=== PATIENT | female | born 1960 | race Caucasian/White ===

== ENCOUNTER 2017-04-08 19:57 | Inpatient (IN) | payer OTHER, MEDICARE ==
[~2017-04-08] VITALS: Ht 172.7 cm; Wt 89.1 kg
[2017-04-08] VITALS (7 sets, daily range): BP systolic 108–139; BP diastolic 77–94; PULSE 88–112; RESP 16–20; TEMP 98; O2SAT 92–94
[~2017-04-08 19:57] MED LIST: ALBU6.7H INH; ASPI81 PO; IBUP-232 PO; OXYC-360 PO
[2017-04-08] MEDS ORDERED: SODIUM CHLOR 0.9% 1000 ML INJ 1,000 ML IV SCH (20:30)
[2017-04-08] MEDS ORDERED: methylPREDNISolone SOD SUCC 125 MG/2 ML VIAL IVP ONE (20:30)
[2017-04-08] MEDS ORDERED: ONDANSETRON HCL 4 MG/2 ML VIAL IV PUSH ONE ×2 (20:30→21:30)
[2017-04-08] MEDS ORDERED: SODIUM CHLORIDE 0.9% FLUSH 10 ML FLUSH IVF PRN ×2 (20:30→23:00)
[2017-04-08] MEDS: RESP: ALBUTEROL 2.5 MG/IPRATROPIUM 0.5 MG NEB (SCH) INH ×2 (20:45→20:46)
--- NOTE | 2017-04-08 20:59 | PD ---
HPI Chief Complaint: Chest Pain Time Seen by Provider: 20:28 Travel History International Travel<30 days: No Contact w/Intl Traveler<30days: No Traveled to known affect area: No History of Present Illness HPI 56-year-old female presents to the emergency department by private transportation for complaint of shortness of breath 3-4 days as well as nausea vomiting abdominal pain times one day. Patient denies fever or chills. Patient reports she ran out of her nebulizer medication her nebulizer broke and she ran out of her rescue inhalers over the past 2-3 days and then today after eating a banana and a pot pie started developing nausea vomiting intermittent crampy abdominal pain and diarrhea with intermittent streaks of blood. No prior history of gastritis peptic ulcer disease colitis or inflammatory bowel disease. Patient states she has noticed over the past 2 weeks of intermittent episodes of blood in her stool after a loose stool. Patient continues to smoke cigarettes. Patient is followed by primary care provider Dr. Morgan but has not been able to get in touch with this physician for refill of medications. After several episodes of nonbilious [id number] emesis or hematemesis decided to come to the emergency room for evaluation. Patient also notes chest discomfort associated with shortness of breath consistent with her wheezing. PFSH Past Medical History Arthritis: Yes Asthma: Yes Anxiety: Yes COPD: Yes Diminished Hearing: No Genitourinary: Yes (BLADDER LEAKAGE) Thyroid Disease: Yes Tetanus Vaccination: Unknown Influenza Vaccination: Yes ?: Not Menopausal: Yes : 3 Para: 3 Social History Alcohol Use: No Tobacco Use: Yes (1 PPD) Substance Use: No Allergies-Medications (Allergen,Severity, Reaction): Coded Allergies: Penicillin (Verified Allergy, Severe, 04/08/17) Reported Meds & Prescriptions Reported Meds & Active Scripts Active Reported Ambien (Zolpidem Tartrate) 5 Mg Tab 5 Mg PO HS PRN Percocet (Oxycodone-Acetaminophen) 10-325 mg Tab 1 Tab PO Q6H PRN Alprazolam 0.25 Mg Tab 0.25 Mg PO BID PRN Diclofenac Sodium DR (Diclofenac Sodium) 75 Mg Tabdr 75 Mg PO BID Levothyroxine (Levothyroxine Sodium) 100 Mcg Tab 100 Mcg PO DAILY Albuterol Neb (Albuterol Sulfate) 2.5 Mg/0.5 Ml Neb 2.5 Mg NEB Q6HR NEB PRN Note: The Albuterol Sulfate Inhalation Solution is concentrated and must be diluted. Read complete instructions carefully before using. Proventil Hfa 6.7 GM Inh (Albuterol Sulfate) 90 Mcg/Act Aer 2 Puff INH Q4-6H PRN Review of Systems Except as stated in HPI: all other systems reviewed are Neg General / Constitutional: No: Fever, Chills HENT: No: Congestion Cardiovascular: Positive: Chest Pain or Discomfort Respiratory: Positive: Cough, Shortness of Breath, Wheezing, No: Hemoptysis, Pleuritic Pain Gastrointestinal: Positive: Nausea, Vomiting, Diarrhea, Abdominal Pain, Hematochezia (intermittent streaks of red blood), No: Hematemesis Genitourinary: No: Urgency, Frequency, Dysuria, Flank Pain Musculoskeletal: No: Myalgias, Arthralgias Skin: No Rash Neurologic: No: Weakness, Dizziness, Syncope Psychiatric: Positive: Anxiety Endocrine: No: Heat Intolerance Hematologic/Lymphatic: No: Easy Bruising Physical Exam Narrative GENERAL: Well-developed well-nourished female in mild to moderate respiratory distress SKIN: Warm and dry. HEAD: Normocephalic. EYES: No scleral icterus. No injection or drainage. NECK: Supple, trachea midline. No JVD or lymphadenopathy. CARDIOVASCULAR: Increased Regular rate and rhythm without murmurs, gallops, or rubs. RESPIRATORY: Breath sounds equal bilaterally diminished bilaterally with expiratory wheeze. No accessory muscle use. GASTROINTESTINAL: Abdomen soft, non-tender, no guarding, no rebound; nondistended. MUSCULOSKELETAL: No cyanosis, or edema. Radial and dorsalis pedis pulses 2+ to palpation. BACK: Nontender without obvious deformity. No CVA tenderness. Data Data Last Documented VS Vital Signs Date Time Temp Pulse Resp B/P Pulse Ox O2 Delivery O2 Flow Rate FiO2 04/08/17 22:15 88 16 139/79 93 Nasal Cannula 2 04/08/17 20:02 98.0 Orders Complete Blood Count With Diff (04/08/17 20:28) Comprehensive Metabolic Panel (04/08/17 20:28) B-Type Natriuretic Peptide (04/08/17 20:28) Act Partial Throm Time (Ptt) (04/08/17 20:28) Prothrombin Time / Inr (Pt) (04/08/17 20:28) Magnesium (Mg) (04/08/17 20:28) Ckmb (Isoenzyme) Profile (04/08/17 20:28) Troponin I (04/08/17 20:28) Urinalysis - C+S If Indicated (04/08/17 20:28) Blood Culture (04/08/17 20:28) Iv Access Insert/Monitor (04/08/17 20:28) Electrocardiogram (04/08/17 20:28) Ecg Monitoring (04/08/17 20:28) Oximetry (04/08/17 20:28) Oxygen Administration (04/08/17 20:28) Chest, Single Ap (04/08/17 20:28) Sodium Chloride 0.9% Flush (Ns Flush) (04/08/17 20:30) Methylprednisolone So Succ Inj (Solumedr (04/08/17 20:30) Albuterol-Ipratropium Neb (Duoneb Neb) (04/08/17 20:30) Sodium Chlor 0.9% 1000 Ml Inj (Ns 1000 M (04/08/17 20:30) Lipase (04/08/17 20:28) Ondansetron Inj (Zofran Inj) (04/08/17 20:30) Enteric Path (Stool) (04/08/17 20:28) Lactic Acid (04/08/17 20:28) Ondansetron Inj (Zofran Inj) (04/08/17 21:30) Ct Abd/Pel W Iv Contrast(Rout) (04/08/17 ) Iohexol 350 Inj (Omnipaque 350 Inj) (04/08/17 22:10) Urine Culture (04/08/17 21:55) Albuterol-Ipratropium Neb (Duoneb Neb) (04/08/17 22:45) Levofloxacin 750 Mg Premix Inj (Levaquin (04/08/17 22:45) Sodium Chlor 0.9% 1000 Ml Inj (Ns 1000 M (04/08/17 22:45) Admit To Inpatient (04/08/17 ) Vital Signs (Adult) Q4H (04/08/17 22:48) Activity Oob With Assistance (04/08/17 22:48) Hauling Contractor / Telemetry .CONTINUOUS (04/08/17 22:48) Diet Heart Healthy (04/09/17 Breakfast) Sodium Chlor 0.9% 1000 Ml Inj (Ns 1000 M (04/08/17 22:48) Sodium Chloride 0.9% Flush (Ns Flush) (04/08/17 23:00) Sodium Chloride 0.9% Flush (Ns Flush) (04/09/17 09:00) Ondansetron Inj (Zofran Inj) (04/08/17 23:00) Comprehensive Metabolic Panel (04/09/17 06:00) Complete Blood Count With Diff (04/09/17 06:00) Case Management Consult (04/08/17 22:48) Naloxone Inj (Narcan Inj) (04/08/17 23:00) Inpatient Certification (04/08/17 ) Levofloxacin 750 Mg Premix Inj (Levaquin (04/09/17 22:00) Albuterol-Ipratropium Neb (Duoneb Neb) (04/09/17 04:00) Albuterol-Ipratropium Neb (Duoneb Neb) (04/08/17 23:00) Admit Order (Ed Use Only) (04/08/17 ) ^ Saline Lock (04/08/17 22:50) Resp Oxygen Sandip C Titrat 1-4 L (04/08/17 ) Notify Dr: Other (04/08/17 22:50) Sodium Chloride 0.9% Flush (Ns Flush) (04/09/17 09:00) Sodium Chloride 0.9% Flush (Ns Flush) (04/08/17 23:00) Labs Laboratory Tests Test 04/08/17 04/08/17 21:10 21:55 White Blood Count 15.1 TH/MM3 Red Blood Count 5.73 MIL/MM3 Hemoglobin 15.9 GM/DL Hematocrit 49.0 % Mean Corpuscular Volume 85.5 FL Mean Corpuscular Hemoglobin 27.7 PG Mean Corpuscular Hemoglobin 32.4 % Concent Red Cell Distribution Width 13.8 % Platelet Count 278 TH/MM3 Mean Platelet Volume 9.2 FL Neutrophils (%) (Auto) 73.2 % Lymphocytes (%) (Auto) 17.6 % Monocytes (%) (Auto) 3.9 % Eosinophils (%) (Auto) 0.7 % Basophils (%) (Auto) 4.6 % Neutrophils # (Auto) 11.0 TH/MM3 Lymphocytes # (Auto) 2.7 TH/MM3 Monocytes # (Auto) 0.6 TH/MM3 Eosinophils # (Auto) 0.1 TH/MM3 Basophils # (Auto) 0.7 TH/MM3 CBC Comment DIFF FINAL Differential Comment Prothrombin Time 10.7 SEC Prothromb Time International 1.0 RATIO Ratio Activated Partial 28.1 SEC Thromboplast Time Sodium Level 142 MEQ/L Potassium Level 3.8 MEQ/L Chloride Level 107 MEQ/L Carbon Dioxide Level 28.4 MEQ/L Anion Gap 7 MEQ/L Blood Urea Nitrogen 15 MG/DL Creatinine 0.75 MG/DL Estimat Glomerular Filtration 80 ML/MIN Rate Random Glucose 107 MG/DL Lactic Acid Level 1.3 mmol/L Calcium Level 9.4 MG/DL Magnesium Level 2.2 MG/DL Total Bilirubin 0.4 MG/DL Aspartate Amino Transf 7 U/L (AST/SGOT) Alanine Aminotransferase 16 U/L (ALT/SGPT) Alkaline Phosphatase 122 U/L Total Creatine Kinase 45 U/L Troponin I LESS THAN 0.02 NG/ML B-Type Natriuretic Peptide 8 PG/ML Total Protein 7.7 GM/DL Albumin 4.2 GM/DL Lipase 231 U/L Urine Color YELLOW Urine Turbidity CLEAR Urine pH 6.0 Urine Specific [place] 1.025 Urine Protein NEG mg/dL Urine Glucose (UA) NEG mg/dL Urine Ketones TRACE mg/dL Urine Occult Blood NEG Urine Nitrite NEG Urine Bilirubin NEG Urine Leukocyte Esterase SMALL Urine RBC INNUM /hpf Urine WBC 9-14 /hpf Urine Squamous Epithelial > 8 /hpf Cells Urine Amorphous Sediment FEW Urine Mucus MANY /lpf Microscopic Urinalysis Comment CULTURE INDICATED MDM Medical Decision Making Medical Screen Exam Complete: Yes Emergency Medical Condition: Yes Medical Record Reviewed: Yes Interpretation(s) EKG normal sinus rhythm rate [address] elevation or injury pattern change or ectopy noted artifact is present at baseline Differential Diagnosis Exacerbation COPD, pneumonia, CHF, ACS, [place], pleurisy, costochondritis, viral syndrome, gastroenteritis, food borne illness, colitis Narrative Course Patient placed on cardiac cath rn IV access obtained specimens collected and sent for resulting EKG performed sinus rhythm rate of [address] elevation or injury pattern change or ectopy noted; patient administered DuoNeb updrafts along with Solu-Medrol; patient also administered Zofran 4 mg IV for complaint of nausea. CBC is automated differential white count 15,000; chest x-ray reveals no lobar infiltrate Lactic acid 1.3, not elevated CT abdomen and pelvis reveals bilateral lower lobe infiltrates and possible SMA syndrome otherwise no acute abnormality identified; patient feels clinically improved although continues to have rhonchi and expiratory wheezing Patient's case discussed with on-call medicine for admission for exacerbation COPD pneumonia gastroenteritis and meets sepsis criteria/sirs for admission. Patient administered Levaquin 750 mg times one dose in the emergency department. Patient given additional DuoNeb updraft and informed of plan for admission Critical Care Narrative Aggregate critical care time was 35 minutes. Time to perform other separately billable procedures was not included in the critical care time. My time did not include minutes spent treating any other patients simultaneously or on activities that did not directly contribute to the patient's treatment. The services I provided to this patient were to treat and/or prevent clinically significant deterioration that could result in: Respiratory failure, respiratory arrest, septic shock, I provided critical care services requiring my management, as noted below: Chart data review, documentation time, medication orders and management, vital sign assessments/reviewing monitor data, ordering and reviewing lab tests, ordering and interpreting/reviewing x-rays and diagnostic studies, care of the patient and discussion of the patient with the admitting physicians. Sepsis Criteria SIRS Criteria (2 or more): Heart rate over 90, WBC > 44701, < 4000 or > 10% bands Sepsis Criteria (SIRS+source): Infect source susp/known (lung/ gi) Physician Communication Physician Communication discused with Dr Judd --admit for copd pneumonia sepsis/sirs Diagnosis Primary Impression: COPD with acute exacerbation Additional Impressions: Pneumonia Gastroenteritis Sepsis Admitting Information Admitting Physician Requests: Admit Paulette Medrano MD Apr 08, 2017 20:59
--- NOTE | 2017-04-08 21:02 | RADRPT ---
EXAM DATE/TIME: 04/08/2017 20:33 [facility] COMPARISON: No previous studies available for comparison. INDICATIONS : Short of breath. MEDICAL HISTORY : Chronic obstructive pulmonary disease. SURGICAL HISTORY : None. ENCOUNTER: Initial ACUITY: 1 day PAIN SCORE: 0/10 LOCATION: Bilateral chest FINDINGS: A single view of the chest demonstrates the lungs to be symmetrically aerated without evidence of mas s, infiltrate or effusion. The cardiomediastinal contours are unremarkable. Degenerative changes in right glenohumeral and a.c. joints. The left shoulder is not included in the [id number]. Multip le hemoclips in the left supraclavicular region.. CONCLUSION: The lungs are clear. Alex Motnalvo MD on April 08, 2017 at 21:00 Board Certified Radiologist. This report was verified electronically.
[2017-04-08 21:24] LABS: BASOPHIL # 0.7 TH/MM3 (0-0.2); BASOPHIL % 4.6 % (0.0-2.0); EOSINOPHIL # 0.1 TH/MM3 (0-0.4); EOSINOPHIL % 0.7 % (0.0-4.0); HEMO FLAGS DIFF FINAL; LYMPH % 17.6 % (9.0-44.0); LYMPHOCYTE # 2.7 TH/MM3 (1.0-4.8); MEAN CELL VOLUME 85.5 FL (80.0-100.0); MEAN CORPUSCULAR HEMOGLOBIN 27.7 PG (27.0-34.0); MEAN CORPUSCULAR HGB CONC 32.4 % (32.0-36.0); MONO % 3.9 % (0.0-8.0); NEUT % 73.2 % (16.0-70.0); PLATELET COUNT 278 TH/MM3 (150-450); RED BLOOD COUNT 5.73 MIL/MM3 (4.00-5.30); RED CELL DISTRIBUTION WIDTH 13.8 % (11.6-17.2); WHITE BLOOD COUNT 15.1 TH/MM3 (4.0-11.0)
[2017-04-08 21:35] LABS: CHLORIDE 107 MEQ/L (98-107); POTASSIUM 3.8 MEQ/L (3.5-5.1); SODIUM (NA) 142 MEQ/L (136-145)
[2017-04-08 21:39] LABS: ANION GAP 7 MEQ/L (5-15); BICARBONATE 28.4 MEQ/L (21.0-32.0); BLOOD UREA NITROGEN 15 MG/DL (7-18); MAGNESIUM 2.2 MG/DL (1.5-2.5)
[2017-04-08 21:40] LABS: APTT (PATIENT) 28.1 SEC (24.3-30.1); PROTHROMBIN TIME - PATIENT 10.7 SEC (9.8-11.6)
[2017-04-08 21:42] LABS: ALT (GPT) 16 U/L (10-53); AST (GOT) 7 U/L (15-37); GLOMERULAR FILTRATION RATE 80 ML/MIN (>89)
[2017-04-08 21:43] LABS: TOTAL BILIRUBIN ADULT 0.4 MG/DL (0.2-1.0)
[2017-04-08 21:44] LABS: ALKALINE PHOSPHATASE 122 U/L (45-117)
[2017-04-08 21:50] LABS: CREATINE KINASE 45 U/L (26-192)
[2017-04-08 22:08] LABS: BLOOD, URINE NEG (NEG); GLUCOSE,URINE NEG (NEG); KETONE, URINE TRACE mg/dL (NEG); NITRITE,URINE NEG (NEG)
[2017-04-08] MEDS ORDERED: IOHEXOL 350 MG/ML 10 ML VIAL (for RAD DIAG) IV ONE (22:10)
[2017-04-08 22:18] LABS: COMMENT (UR) CULTURE INDICATED; CULTURE IF INDICATED CULTURE INDICATED; MUCUS URINE MANY /lpf (OCC); RBC, URINE INNUM /hpf (0-3); SQUAMOUS EPITHELIAL CELL URINE > 8 /hpf (0-5); URINE COLOR YELLOW (YELLW/STRAW)
--- NOTE | 2017-04-08 22:38 | RADRPT ---
EXAM DATE/TIME: 04/08/2017 21:56 [facility] COMPARISON: No previous studies available for comparison. INDICATIONS : Nausea and vomiting. IV CONTRAST: 100 cc Omnipaque 350 (iohexol) IV ORAL CONTRAST: No oral contrast ingested. RADIATION DOSE: 18.08 CTDIvol (mGy) MEDICAL HISTORY : Bladder leakage. SURGICAL HISTORY : None. ENCOUNTER: Initial ACUITY: 1 day PAIN SCALE: 0/10 LOCATION: abdomen TECHNIQUE: Volumetric scanning of the abdomen and pelvis was performed. Using automated exposure control and ad justment of the mA and/or kV according to patient size, radiation dose was kept as low as reasonably achievable to obtain optimal diagnostic quality images. DICOM format image data is available electro nically for review and comparison. FINDINGS: LOWER LUNGS: Patchy bibasilar infiltrates lateral costophrenic angle on the right and anteriorly on the left. Sma ll hiatus hernia. LIVER: Homogeneous density without lesion. There is no dilation of the biliary tree. The gallbladder is mi ldly contracted. No calcified gallstones. SPLEEN: Normal size without lesion. PANCREAS: Within normal limits. KIDNEYS: Normal in size and shape. There is no mass, stone or hydronephrosis. ADRENAL GLANDS: Within normal limits. VASCULAR: There is no aortic aneurysm. BOWEL/MESENTERY: There is a change in the luminal diameter of the 4th portion of the duodenum as it crosses between th e aorta and the superior mesenteric artery. No dilated loops of small or large bowel. No evidence o f free fluid. No significant diverticula the appendix is identified in the right lower quadrant has a normal size. ABDOMINAL WALL: Within normal limits. RETROPERITONEUM: There is no lymphadenopathy. BLADDER: No wall thickening or mass. REPRODUCTIVE: Within normal limits. INGUINAL: There is no lymphadenopathy or hernia. MUSCULOSKELETAL: Within normal limits for patient age. CONCLUSION: 1. Bibasilar lung consolidative infiltrates without pleural effusion. 2. Change in the luminal diameter of the 4th portion of the duodenum raises the possibility of SMA sy ndrome. 3. Contracted gallbladder without calcified stones. Alex Montalvo MD on April 08, 2017 at 22:32 Board Certified Radiologist. This report was verified electronically.
[2017-04-08] MEDS ORDERED: ALBU6.7H INH (22:40)
[2017-04-08] MEDS ORDERED: ALBU.5I NEB (22:40)
[2017-04-08] MEDS ORDERED: ALPR0.25 PO (22:43)
[2017-04-08] MEDS ORDERED: PERC10TA27 PO (22:43)
[2017-04-08] MEDS ORDERED: LEVO100T5 PO (22:43)
[2017-04-08] MEDS ORDERED: AMBI5TAB PO (22:43)
[2017-04-08] MEDS ORDERED: DICL75TA PO (22:43)
[2017-04-08] MEDS ORDERED: RESP: ALBUTEROL 2.5 MG/IPRATROPIUM 0.5 MG NEB (SCH) NEB ONE (22:45)
[2017-04-08] MEDS ORDERED: LEVOFLOXACIN 750 MG PREMIX INJ 150 ML IV ONE (22:45)
[2017-04-08] MEDS ORDERED: SODIUM CHLOR 0.9% 1000 ML INJ 1,000 ML IV ONE (22:45)
[2017-04-08] MEDS ORDERED: NALOXONE HCL 0.4 MG/ML AMP IV PRN (23:00)
[2017-04-08] MEDS ORDERED: SODIUM CHLORIDE 0.9% FLUSH 10 ML FLUSH IV FLUSH PRN (23:00)
[2017-04-08] MEDS ORDERED: RESP: ALBUTEROL 2.5 MG/IPRATROPIUM 0.5 MG NEB (PRN) NEB (23:00)
[2017-04-08] MEDS: SODIUM CHLOR 0.9% 1000 ML INJ 1,000 ML IV SCH (23:13)
[2017-04-08] MEDS: ONDANSETRON HCL 4 MG/2 ML VIAL IVP PRN (23:13)
[2017-04-09] VITALS (10 sets, daily range): BP systolic 114–156; BP diastolic 73–93; PULSE 74–120; RESP 20; TEMP 96.3–98.1; O2SAT 90–94
[2017-04-09] MEDS ORDERED: NICOTINE 21 MG/24 HR PATCH T-DERMAL ONE
[2017-04-09] MEDS: ZOLPIDEM TARTRATE 5 MG TAB PO PRN ×2 (00:41→21:08)
[2017-04-09] MEDS ORDERED: ALPR0.5T3 PO (01:07)
[2017-04-09] MEDS ORDERED: oxyCODONE/ACETAMINOPHEN 7.5 MG/325 MG TAB PO ONE (01:45)
[2017-04-09] MEDS: RESP: ALBUTEROL 2.5 MG/IPRATROPIUM 0.5 MG NEB (SCH) NEB ×4 (03:06→21:20)
[2017-04-09] MEDS: ONDANSETRON HCL 4 MG/2 ML VIAL IVP PRN ×3 (03:44→21:04)
[2017-04-09] MEDS: SODIUM CHLOR 0.9% 1000 ML INJ 1,000 ML IV SCH ×2 (03:47→18:48)
[2017-04-09 06:00] LABS: AUTOMATED NEUTROPHIL # 12.2 TH/MM3 (1.8-7.7); BASOPHIL # 0.1 TH/MM3 (0-0.2); BASOPHIL % 0.7 % (0.0-2.0); HEMATOCRIT 42.2 % (35.0-46.0); LYMPH % 4.7 % (9.0-44.0); LYMPHOCYTE # 0.6 TH/MM3 (1.0-4.8); MEAN CELL VOLUME 85.1 FL (80.0-100.0); MEAN CORPUSCULAR HEMOGLOBIN 28.3 PG (27.0-34.0); MEAN CORPUSCULAR HGB CONC 33.2 % (32.0-36.0); MONO % 0.1 % (0.0-8.0); NEUT % 94.5 % (16.0-70.0); PLATELET COUNT 227 TH/MM3 (150-450); RED BLOOD COUNT 4.95 MIL/MM3 (4.00-5.30); RED CELL DISTRIBUTION WIDTH 13.9 % (11.6-17.2); WHITE BLOOD COUNT 12.9 TH/MM3 (4.0-11.0)
[2017-04-09 06:07] LABS: CHLORIDE 107 MEQ/L (98-107); SODIUM (NA) 141 MEQ/L (136-145)
[2017-04-09 06:08] LABS: HEMO FLAGS DIFF FINAL
[2017-04-09 06:12] LABS: ANION GAP 10 MEQ/L (5-15); BICARBONATE 24.4 MEQ/L (21.0-32.0); BLOOD UREA NITROGEN 19 MG/DL (7-18)
[2017-04-09 06:15] LABS: ALT (GPT) 17 U/L (10-53); AST (GOT) 7 U/L (15-37); GLOMERULAR FILTRATION RATE 52 ML/MIN (>89)
[2017-04-09 06:16] LABS: TOTAL BILIRUBIN ADULT 0.6 MG/DL (0.2-1.0)
[2017-04-09 06:18] LABS: ALKALINE PHOSPHATASE 114 U/L (45-117)
[2017-04-09] MEDS: SODIUM CHLORIDE 0.9% FLUSH 10 ML FLUSH IV FLUSH SCH ×2 (09:00→21:00)
[2017-04-09] MEDS ORDERED: SODIUM CHLORIDE 0.9% FLUSH 10 ML FLUSH IV FLUSH SCH (09:00)
[2017-04-09] MEDS ORDERED: oxyCODONE/ACETAMINOPHEN 10 MG/325 MG TAB PO PRN (10:00)
--- NOTE | 2017-04-09 14:41 | EKG ---
Date Performed: 04/08/2017 Time Performed: 20:45:21 PTAGE: 56 years EKG: Sinus rhythm NORMAL ECG NO PREVIOUS TRACING DOCTOR: Uzma Hooks Interpretating Date/Time 04/09/2017 14:39:37
[2017-04-09] MEDS ORDERED: RESP: ALBUTEROL 2.5 MG/3 ML NEB (PRN) INH (15:00)
--- NOTE | 2017-04-09 15:00 | HHI.HP ---
HPI Service [facility] Primary Care Physician Radha Morgan M.D. Admission Diagnosis exacerbation copd; pneumonia; sepsis Diagnoses: Travel History International Travel<30 Days: No Contact w/Intl Traveler <30 Da: No Traveled to Known Affected Are: No Sepsis Criteria SIRS Criteria (2 or more): Heart rate over 90, WBC > 12688, < 4000 or > 10% bands Sepsis Criteria (SIRS+source): Infect source susp/known History of Present Illness Patient is a 56-year-old female with past medical history of COPD/asthma, chronic low back pain, severe arthritis of the knees, hypothyroidism presented to the emergency room for worsening shortness of breath. She states that there is black mold in her house and she is in the process of trying to move. She has been feeling sick for a while. Last night she was experiencing some chest pain 8 out of 10 associated with coughing and her shortness of breath. She has been feeling weak and dehydrated. She admits to nausea vomiting and diarrhea on and off for the past week. She had mild diarrhea yesterday but none today. She states that 2 weeks ago she did have streaks of blood in her stools. She admits to having hemorrhoids in the past. She wonders if the red color noted in his stool 2 weeks ago was due to her drinking "big-red "soda. She denies any bleeding at this time. She continues to have some shortness of breath but has improved after getting some steroids in the emergency room. She is still wheezing. Her nebulizer broke about a month ago and she hasn't had a chance replace it. Currently she denies any chest pains. She admits to some chills but hasn't taken her temperature at home and she doesn't know if she had any fevers. She also has been coughing up some white phlegm. Daughter also has been feeling sick secondary to the mold. Review of Systems Except as stated in HPI: all other systems reviewed are Neg Past Family Social History Past Medical History COPD/asthma, chronic low back pain, severe arthritis of the knees, hypothyroidism Past Surgical History Right and left knee arthroscopy. Neck mass removal. Reported Medications Reported Meds & Active Scripts Active Reported Alprazolam 0.5 Mg Tab 0.5 Mg PO BID PRN Ambien (Zolpidem Tartrate) 5 Mg Tab 5 Mg PO HS PRN Percocet (Oxycodone-Acetaminophen) 10-325 mg Tab 1 Tab PO Q6H PRN Diclofenac Sodium DR (Diclofenac Sodium) 75 Mg Tabdr 75 Mg PO BID Levothyroxine (Levothyroxine Sodium) 100 Mcg Tab 100 Mcg PO DAILY Albuterol Neb (Albuterol Sulfate) 2.5 Mg/0.5 Ml Neb 2.5 Mg NEB Q6HR NEB PRN Note: The Albuterol Sulfate Inhalation Solution is concentrated and must be diluted. Read complete instructions carefully before using. Proventil Hfa 6.7 GM Inh (Albuterol Sulfate) 90 Mcg/Act Aer 2 Puff INH Q4-6H PRN Allergies: Coded Allergies: Penicillin (Verified Allergy, Severe, 04/08/17) Family History Other had brain cancer. Father committed suicide Social History Smokes a pack a day for the past 12 years. Denies alcohol or illegal drug use Physical Exam Vital Signs Vital Signs Date Time Temp Pulse Resp B/P Pulse Ox O2 Delivery O2 Flow Rate FiO2 04/09/17 12:00 97.7 101 20 156/84 94 04/09/17 11:20 18 04/09/17 10:02 91 21 04/09/17 08:00 96.8 90 20 146/80 92 04/09/17 06:55 88 04/09/17 04:00 96.3 106 20 143/77 91 04/09/17 00:45 96.6 95 20 114/73 93 04/09/17 00:12 96.6 95 20 114/73 93 04/08/17 23:31 88 18 108/77 93 Nasal Cannula 2 04/08/17 22:52 94 Nasal Cannula 2.00 04/08/17 22:15 88 16 139/79 93 Nasal Cannula 2 04/08/17 20:40 94 Room Air 04/08/17 20:40 18 94 Room Air 04/08/17 20:30 98.0 103 20 131/94 93 Room Air 04/08/17 20:25 109 93 Room Air 04/08/17 20:15 103 20 131/94 94 Room Air 04/08/17 20:02 98.0 112 20 126/93 92 Physical Exam GENERAL: This is a well-nourished, well-developed patient, laying in bed, appears comfortable. SKIN: No rashes, ecchymoses or lesions. Cool and dry. HEAD: Atraumatic. Normocephalic. No temporal or scalp tenderness. EYES: Pupils equal round and reactive. Extraocular motions intact. No scleral icterus. No injection or drainage. ENT: Nose without drainage. Throat without erythema, tonsillar hypertrophy or exudate. Uvula midline. Airway patent. NECK: Trachea midline. No JVD or lymphadenopathy. Supple, nontender, no meningeal signs. CARDIOVASCULAR: Regular rate and rhythm without murmurs RESPIRATORY: Breath sounds equal bilaterally. Diffuse wheezing at the bases. No crackles auscultated GASTROINTESTINAL: Abdomen soft, some epigastric tenderness to deep palpation, nondistended. No palpable masses. No guarding. MUSCULOSKELETAL: Extremities without edema. No calf tenderness. Negative Homans sign bilaterally. NEUROLOGICAL: Awake and alert. Cranial nerves II through XII intact. Motor and sensory grossly within normal limits. Normal speech. Laboratory Laboratory Tests Test 04/08/17 04/08/17 04/09/17 21:10 21:55 05:45 Prothrombin Time 10.7 Prothromb Time International 1.0 Ratio Activated Partial 28.1 Thromboplast Time Sodium Level 142 141 Potassium Level 3.8 4.0 Chloride Level 107 107 Carbon Dioxide Level 28.4 24.4 Anion Gap 7 10 Blood Urea Nitrogen 15 19 Creatinine 0.75 1.10 Estimat Glomerular Filtration 80 52 Rate Random Glucose 107 195 Lactic Acid Level 1.3 Calcium Level 9.4 9.3 Magnesium Level 2.2 Total Bilirubin 0.4 0.6 Aspartate Amino Transf 7 7 (AST/SGOT) Alanine Aminotransferase 16 17 (ALT/SGPT) Alkaline Phosphatase 122 114 Total Creatine Kinase 45 Troponin I LESS THAN 0.02 B-Type Natriuretic Peptide 8 Total Protein 7.7 7.0 Albumin 4.2 3.8 Lipase 231 White Blood Count 15.1 12.9 Red Blood Count 5.73 4.95 Hemoglobin 15.9 14.0 Hematocrit 49.0 42.2 Mean Corpuscular Volume 85.5 85.1 Mean Corpuscular Hemoglobin 27.7 28.3 Mean Corpuscular Hemoglobin 32.4 33.2 Concent Red Cell Distribution Width 13.8 13.9 Platelet Count 278 227 Mean Platelet Volume 9.2 9.3 Neutrophils (%) (Auto) 73.2 94.5 Lymphocytes (%) (Auto) 17.6 4.7 Monocytes (%) (Auto) 3.9 0.1 Eosinophils (%) (Auto) 0.7 0.0 Basophils (%) (Auto) 4.6 0.7 Neutrophils # (Auto) 11.0 12.2 Lymphocytes # (Auto) 2.7 0.6 Monocytes # (Auto) 0.6 0.0 Eosinophils # (Auto) 0.1 0.0 Basophils # (Auto) 0.7 0.1 CBC Comment DIFF FINAL DIFF FINAL Differential Comment Urine Color YELLOW Urine Turbidity CLEAR Urine pH 6.0 Urine Specific Blain 1.025 Urine Protein NEG Urine Glucose (UA) NEG Urine Ketones TRACE Urine Occult Blood NEG Urine Nitrite NEG Urine Bilirubin NEG Urine Leukocyte Esterase SMALL Urine RBC INNUM Urine WBC 9-14 Urine Squamous Epithelial > 8 Cells Urine Amorphous Sediment FEW Urine Mucus MANY Microscopic Urinalysis Comment CULTURE INDICATED Date/Time Procedure Status Source Growth 04/08/17 22:00 Aerobic Blood Culture - Preliminary Resulted Blood Peripheral NO GROWTH IN 1 DAY 04/08/17 22:00 Anaerobic Blood Culture - Final Resulted Blood Peripheral QNS - SEE AEROBE REPORT 04/08/17 21:55 Urine Culture - Preliminary Resulted Urine Clean Catch Gram Negative Juwan Result Diagram: 04/09/17 0545 04/09/17 0545 Imaging Last Impressions Chest X-Ray 04/08/172027 Signed Impressions: Service Date/Time: Saturday, April 08, 2017 20:33 - CONCLUSION: The lungs are clear. Alex Montalvo MD Abdomen/Pelvis CT 04/08/17 0000 Signed Impressions: Service Date/Time: Saturday, April 08, 2017 21:56 - CONCLUSION: 1. Bibasilar lung consolidative infiltrates without pleural effusion. 2. Change in the luminal diameter of the 4th portion of the duodenum raises the possibility of SMA syndrome. 3. Contracted gallbladder without calcified stones. Alex Montalvo MD Assessment and Plan Assessment and Plan Severe COPD exacerbation: Patient apparently has a history of COPD and is on disability for 10 years. 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 She received a dose of IV Solu-Medrol in the emergency room. Will continue IV Solu- Medrol 40 every 6 hours for now. Transition to po once improved. Currently on nasal cannula requiring 2 L oxygen. We will give her scheduled DuoNeb treatments and as needed. Encourage use of incentive spirometer every hour while awake. We will treat with IV Levaquin as CT abdomen and pelvis was concerning for Bibasilar lung consolidative infiltrates without pleural effusion. wean oxygen, keep O2 sats between 89-92%. Encourage ambulation. Initial troponin negative. Patient is chest pain is associated with coughing in shortness of breath. No longer having chest pains. EKG on admission showed normal sinus rhythm with no ST elevation or depressions. Mild PATI: Gentle hydration IV. Repeat in the morning chronic low back pain: Pain medication restarted, she states she takes it 4 times a day during the day. severe arthritis of the knees: Home dose Percocet. hypothyroidism: home medication resumed DVT prophylaxis: Lovenox Code Status full Discussed Condition With patient Loretta Bennett MD Apr 09, 2017 15:00
[2017-04-09] MEDS: methylPREDNISolone SOD SUCC 125 MG/2 ML VIAL IVP SCH ×2 (15:25→21:05)
[2017-04-09] MEDS ORDERED: ENOXAPARIN SODIUM 40 MG/0.4 ML SYRINGE SQ SCH (16:00)
[2017-04-09] MEDS ORDERED: RESP: ALBUTEROL 2.5 MG/IPRATROPIUM 0.5 MG NEB (SCH) INH (16:00)
[2017-04-09] MEDS: NICOTINE 21 MG/24 HR PATCH T-DERMAL SCH (16:10)
[2017-04-09] MEDS ORDERED: REMOVE OLD PATCH T-DERMAL SCH (21:00)
[2017-04-09] MEDS ORDERED: ZOLPIDEM TARTRATE 5 MG TAB PO PRN (21:00)
[2017-04-09] MEDS: oxyCODONE/ACETAMINOPHEN 10 MG/325 MG TAB PO PRN (21:08)
[2017-04-09] MEDS: ALPRAZolam 0.5 MG TAB PO PRN (21:08)
[2017-04-09] MEDS ORDERED: LEVOFLOXACIN 750 MG PREMIX INJ 150 ML IV SCH (22:00)
[2017-04-10] VITALS (7 sets, daily range): BP systolic 118–147; BP diastolic 63–87; PULSE 81–98; RESP 16–20; TEMP 95.8–97.3; O2SAT 89–94
[2017-04-10] MEDS: methylPREDNISolone SOD SUCC 125 MG/2 ML VIAL IVP SCH ×2 (02:25→08:51)
[2017-04-10] MEDS: RESP: ALBUTEROL 2.5 MG/IPRATROPIUM 0.5 MG NEB (SCH) NEB ×2 (03:18→10:16)
[2017-04-10] MEDS ORDERED: LEVOTHYROXINE SODIUM 100 MCG TAB PO SCH (06:00)
[2017-04-10] MEDS: SODIUM CHLOR 0.9% 1000 ML INJ 1,000 ML IV SCH (06:03)
[2017-04-10] MEDS: ALPRAZolam 0.5 MG TAB PO PRN (06:11)
[2017-04-10 06:55] LABS: AUTOMATED NEUTROPHIL # 15.1 TH/MM3 (1.8-7.7); BASOPHIL # 0.1 TH/MM3 (0-0.2); BASOPHIL % 0.7 % (0.0-2.0); EOSINOPHIL % 0.1 % (0.0-4.0); HEMATOCRIT 42.3 % (35.0-46.0); LYMPHOCYTE # 0.8 TH/MM3 (1.0-4.8); MEAN CELL VOLUME 86.6 FL (80.0-100.0); MEAN CORPUSCULAR HEMOGLOBIN 28.3 PG (27.0-34.0); MEAN CORPUSCULAR HGB CONC 32.7 % (32.0-36.0); MONO % 0.4 % (0.0-8.0); NEUT % 93.8 % (16.0-70.0); PLATELET COUNT 221 TH/MM3 (150-450); RED BLOOD COUNT 4.88 MIL/MM3 (4.00-5.30); RED CELL DISTRIBUTION WIDTH 14.8 % (11.6-17.2); WHITE BLOOD COUNT 16.1 TH/MM3 (4.0-11.0)
[2017-04-10 07:01] LABS: POTASSIUM 4.4 MEQ/L (3.5-5.1)
[2017-04-10 07:05] LABS: HEMO FLAGS DIFF FINAL
[2017-04-10 07:10] LABS: BICARBONATE 24.5 MEQ/L (21.0-32.0)
[2017-04-10] MEDS: oxyCODONE/ACETAMINOPHEN 10 MG/325 MG TAB PO PRN ×2 (07:31→12:08)
[2017-04-10] MEDS: NICOTINE 21 MG/24 HR PATCH T-DERMAL SCH (08:51)
[2017-04-10] MEDS: SODIUM CHLORIDE 0.9% FLUSH 10 ML FLUSH IV FLUSH SCH (08:51)
--- NOTE | 2017-04-10 10:38 | HHI.PR ---
Subjective Remarks Written by Valentine Todd, acting as scribe for Dr. Bennett on 04/10/17 at 10:27. Follow-up visit COPD exacerbation, sepsis, ESBL in the urine. Patient seen and examined today. Reports she is doing a lot better. Shortness of breath dyspnea has improved compared to when she first came in. States she is concerned regarding going home because of mold issues in her home that even her daughter is actually being affected, but she is happy to find out that she is able to go home. Discussed with patient results of her UA. Denies abdominal pain, abdominal cramping, dysuria, hematuria. Denies chest pain, palpitations, headaches, dizziness. Denies fever, chills, nausea, vomiting, diarrhea. Objective Vitals Vital Signs Date Time Temp Pulse Resp B/P Pulse Ox O2 Delivery O2 Flow Rate FiO2 04/10/17 10:18 92 21 04/10/17 08:31 18 04/10/17 08:00 95.8 81 20 146/87 91 04/10/17 06:50 86 04/10/17 04:09 97.1 98 16 118/63 92 04/10/17 00:05 97.0 88 20 141/77 89 04/09/17 21:20 90 21 04/09/17 20:36 98.1 120 20 150/93 91 04/09/17 16:00 97.8 74 20 143/87 94 04/09/17 12:00 97.7 101 20 156/84 94 04/09/17 11:20 18 I/O 04/09/17 04/09/17 04/09/17 04/10/17 04/10/17 04/10/17 07:00 15:00 23:00 07:00 15:00 23:00 Intake Total 1110 ml 1610 ml 3641 ml Balance 1110 ml 1610 ml 3641 ml Intake Oral 960 ml 1610 ml 1920 ml IV Total 150 ml 1721 ml # Voids 1 3 4 # Bowel Movements 0 1 Result Diagram: 04/10/1717 04/10/17616 Imaging Last Impressions Chest X-Ray 04/08/172027 Signed Impressions: Service Date/Time: Saturday, April 08, 2017 20:33 - CONCLUSION: The lungs are clear. Alex Montalvo MD Abdomen/Pelvis CT 04/08/17 0000 Signed Impressions: Service Date/Time: Saturday, April 08, 2017 21:56 - CONCLUSION: 1. Bibasilar lung consolidative infiltrates without pleural effusion. 2. Change in the luminal diameter of the 4th portion of the duodenum raises the possibility of SMA syndrome. 3. Contracted gallbladder without calcified stones. Alex Montalvo MD Objective Remarks GENERAL: This is a well-nourished, well-developed patient, in no apparent distress. SKIN: Warm and dry. HEENT: Normocephalic. Pupils equal round and reactive. Nose without bleeding. Airway patent. NECK: Trachea midline. No JVD. Supple. CARDIOVASCULAR: Regular rate and rhythm without murmurs, gallops, or rubs. RESPIRATORY: Moderate air entry. Mild expiratory wheezes. GASTROINTESTINAL: Abdomen soft, non-tender, nondistended. Bowel Sounds normoactive x4. MUSCULOSKELETAL: Extremities without clubbing, cyanosis, or edema. NEUROLOGICAL: Awake and alert. Oriented to time, place, person. No focal neuro deficit. Moves all extremities. Normal speech. A/P Problem List: (1) COPD with acute exacerbation ICD Code: J44.1 Status: Acute (2) Sepsis ICD Code: A41.9 Status: Acute (3) UTI due to extended-spectrum beta lactamase (ESBL) producing Escherichia coli ICD Code: N39.0 Status: Acute Assessment and Plan Patient is a 56-year-old female with past medical history of COPD/asthma, chronic low back pain, severe arthritis of the knees, hypothyroidism presented to the emergency room for worsening shortness of breath. Severe COPD exacerbation: Patient apparently has a history of COPD and is on disability for 10 years. She does not follow up with a audiometric technician. - She received a dose of IV Solu-Medrol in the emergency room. on IV Solu- Medrol 40 every 6 hours for now. Transition to po once improved. - Currently on room air, last night required nasal cannula 2 L oxygen. Wean oxygen, keep O2 sats between 89-92%. - Scheduled DuoNeb treatments and as needed. Encourage use of incentive spirometer every hour while awake. - IV Levaquin as CT abdomen and pelvis was concerning for Bibasilar lung consolidative infiltrates without pleural effusion. - Encourage ambulation. Walk test ordered. Failed walk test. Will need O2 at home. - Initial troponin negative. Patient is chest pain is associated with coughing in shortness of breath. No longer having chest pains. EKG on admission showed normal sinus rhythm with no ST elevation or depressions. - Plan to discharge home patient on Levaquin, urinary tract infection, ESBL - sensitive to Cipro. Patient will by mouth steroid. Nebulizer for home, consult case management for recurring nebulizer. Patient states she previously have nebulizer at home but broken. - Discuss with patient importance of mold remediation or getting out of their apartment. May use dehumidifier. Mild PATI: Gentle hydration IV. - Improved - SPACE SCIENCES DIRECTOR 1.10 --> 0.93 Urinary tract infection, ESBL - Follow-up microbiology showed ESBL UTI sensitive to Cipro - We will switch over to Levaquin to Cipro - DC patient with Levaquin by mouth Chronic low back pain Severe arthritis of the knees - Pain medication restarted, she states she takes it 4 times a day during the day - Home dose Percocet. Hypothyroidism: home medication resumed DVT prophylaxis: Lovenox Full Code Discussed Condition With Patient, nursing Discharge Planning Plan to discharge home today with nebulizer. Follow up with case management for procurement of nebulizer machine. This note was transcribed by cristina Todd. I, Dr. Loretta Bennett personally performed the history, physical exam, and medical decision making; and confirmed the accuracy of the information in the transcribed note. Authenticated by Dr. Loretta Bennett on 04/10/17 at 1027. Valentine Hunt Apr 10, 2017 10:38 Loretta Bennett MD Apr 10, 2017 16:53
--- NOTE | 2017-04-10 11:43 | HHI.DS ---
Discharge Summary Admission Date Apr 08, 2017 at 22:51 Discharge Date: Apr 10, 2017 Admitting Diagnosis exacerbation copd; pneumonia; sepsis (1) COPD with acute exacerbation ICD Code: J44.1 Diagnosis: Principal (2) Sepsis ICD Code: A41.9 Diagnosis: Principal (3) UTI due to extended-spectrum beta lactamase (ESBL) producing Escherichia coli ICD Code: N39.0 Diagnosis: Principal Procedures None Brief History - From Admission Patient is a 56-year-old female with past medical history of COPD/asthma, chronic low back pain, severe arthritis of the knees, hypothyroidism presented to the emergency room for worsening shortness of breath. She states that there is black mold in her house and she is in the process of trying to move. She has been feeling sick for a while. Last night she was experiencing some chest pain 8 out of 10 associated with coughing and her shortness of breath. She has been feeling weak and dehydrated. She admits to nausea vomiting and diarrhea on and off for the past week. She had mild diarrhea yesterday but none today. She states that 2 weeks ago she did have streaks of blood in her stools. She admits to having hemorrhoids in the past. She wonders if the red color noted in his stool 2 weeks ago was due to her drinking "big-red "soda. She denies any bleeding at this time. She continues to have some shortness of breath but has improved after getting some steroids in the emergency room. She is still wheezing. Her nebulizer broke about a month ago and she hasn't had a chance replace it. Currently she denies any chest pains. She admits to some chills but hasn't taken her temperature at home and she doesn't know if she had any fevers. She also has been coughing up some white phlegm. Daughter also has been feeling sick secondary to the mold. CBC/BMP: 04/10/17 0617 04/10/17 0617 Significant Findings Laboratory Tests Test 04/08/17 04/08/17 04/09/17 04/10/17 21:10 21:55 05:45 06:17 Estimat Glomerular Filtration 80 ML/MIN (>89) 52 ML/MIN (>89) 63 ML/MIN (>89) Rate Random Glucose 107 MG/DL 195 MG/DL 138 MG/DL (74-106) (74-106) (74-106) Aspartate Amino Transf 7 U/L (15-37) 7 U/L (15-37) (AST/SGOT) Alkaline Phosphatase 122 U/L (45-117) Troponin I LESS THAN 0.02 NG/ML (0.02-0.05) White Blood Count 15.1 TH/MM3 12.9 TH/MM3 16.1 TH/MM3 (4.0-11.0) (4.0-11.0) (4.0-11.0) Red Blood Count 5.73 MIL/MM3 (4.00-5.30) Hemoglobin 15.9 GM/DL (11.6-15.3) Hematocrit 49.0 % (35.0-46.0) Neutrophils (%) (Auto) 73.2 % 94.5 % 93.8 % (16.0-70.0) (16.0-70.0) (16.0-70.0) Basophils (%) (Auto) 4.6 % (0.0-2.0) Neutrophils # (Auto) 11.0 TH/MM3 12.2 TH/MM3 15.1 TH/MM3 (1.8-7.7) (1.8-7.7) (1.8-7.7) Basophils # (Auto) 0.7 TH/MM3 (0-0.2) Urine Ketones TRACE mg/dL (NEG) Urine Leukocyte Esterase SMALL (NEG) Urine RBC INNUM /hpf (0-3) Urine WBC 9-14 /hpf (0-5) Urine Squamous Epithelial > 8 /hpf (0-5) Cells Urine Mucus MANY /lpf (OCC) Lymphocytes (%) (Auto) 4.7 % 5.0 % (9.0-44.0) (9.0-44.0) Lymphocytes # (Auto) 0.6 TH/MM3 0.8 TH/MM3 (1.0-4.8) (1.0-4.8) Blood Urea Nitrogen 19 MG/DL (7-18) Creatinine 1.10 MG/DL (0.50-1.00) Imaging Last Impressions Chest X-Ray 04/08/172027 Signed Impressions: Service Date/Time: Saturday, April 08, 2017 20:33 - CONCLUSION: The lungs are clear. Alex Montalvo MD Abdomen/Pelvis CT 04/08/17 0000 Signed Impressions: Service Date/Time: Saturday, April 08, 2017 21:56 - CONCLUSION: 1. Bibasilar lung consolidative infiltrates without pleural effusion. 2. Change in the luminal diameter of the 4th portion of the duodenum raises the possibility of SMA syndrome. 3. Contracted gallbladder without calcified stones. Alex Montalvo MD PE at Discharge GENERAL: This is a well-nourished, well-developed patient, in no apparent distress. SKIN: Warm and dry. HEENT: Normocephalic. Pupils equal round and reactive. Nose without bleeding. Airway patent. NECK: Trachea midline. No JVD. Supple. CARDIOVASCULAR: Regular rate and rhythm without murmurs, gallops, or rubs. RESPIRATORY: Moderate air entry. Mild expiratory wheezes. GASTROINTESTINAL: Abdomen soft, non-tender, nondistended. Bowel Sounds normoactive x4. MUSCULOSKELETAL: Extremities without clubbing, cyanosis, or edema. NEUROLOGICAL: Awake and alert. Oriented to time, place, person. No focal neuro deficit. Moves all extremities. Normal speech. Pt update on day of discharge Patient seen and examined today. Reports she is doing a lot better. Shortness of breath dyspnea has improved compared to when she first came in. States she is concerned regarding going home because of mold issues in her home that even her daughter is actually being affected, but she is happy to find out that she is able to go home. Discussed with patient results of her UA. Denies abdominal pain, abdominal cramping, dysuria, hematuria. Denies chest pain, palpitations, headaches, dizziness. Denies fever, chills, nausea, vomiting, diarrhea. Hospital Course Patient is a 56-year-old female with past medical history of COPD/asthma, chronic low back pain, severe arthritis of the knees, hypothyroidism presented to the emergency room for worsening shortness of breath. She was treated with IV Solu-Medrol and Levaquin IV. She has mild acute kidney injury but has improved with IV fluid hydration. Patient also had a urinary tract infection, ESBL sensitive to Cipro. Her overall status has improved including shortness of breath dyspnea. Plan to discharge home patient on of Levaquin secondary to urinary tract infection, ESBL - sensitive to Cipro. Patient will by mouth steroid. Nebulizer for home, consult case management for nebulizer. Patient states she previously have nebulizer at home but broken. Discuss with patient importance of mold remediation or getting out of their apartment. May use dehumidifier. Failed walk test. Desaturate with exertion, ambulation. Patient will need O2 at home, 2 L nasal cannula. CM was assisting w setting up oxygen however apparently pt stated that she " must go home to daughter" and from nursing staff, left without having it set up. Pt Condition on Discharge: Stable Discharge Disposition: Discharge Home Discharge Time: <= 30 minutes Discharge Instructions DIET: Follow Instructions for: Heart Healthy Diet Speech Therapy-Diet Recommends: Regular Activities you can perform: Regular-No Restrictions Follow up Referrals: PCP Follow-up - 1 Week New Medications: Levofloxacin (Levaquin) 750 Mg Tablet 750 MG PO DAILY Infection Days 7 TAB Nebulizer (Nebulizer) 1 Mis Mis 1 EA .ROUTE DIRECTED Breathing Treatment #1 Ref 0 EA Prednisone (Prednisone) 20 Mg Tab 40 MG PO DAILY Take 40 mg (2 tablets) daily for 5 days COPD exacerbation Days 5 Ref 0 TAB Ipratropium-Albuterol Neb (Duoneb) 0.5-2.5 Mg/3 Ml Neb 1 AMPULE NEB Q6HR NEB Breathing Treatment Days 30 ML Nicotine (Eq Nicotine) 21 Mg/24 Hr Dis 1 PATCH T-DERMAL DAILY Smoking Cessation #30 BOX Continued Medications: Albuterol 6.7 GM Inh (Proventil Hfa 6.7 GM Inh) 90 Mcg/Act Aer 2 PUFF INH Q4-6H PRN SHORTNESS OF BREATH #1 Ref 0 INHALER Albuterol Neb (Albuterol Neb) 2.5 Mg/0.5 Ml Neb 2.5 MG NEB Q6HR NEB Note: The Albuterol Sulfate Inhalation Solution is concentrated and must be diluted. Read complete instructions carefully before using. PRN SOB/WHEEZING BOX Alprazolam (Alprazolam) 0.5 Mg Tab 0.5 MG PO BID PRN ANXIETY Ref 0 TAB Levothyroxine (Levothyroxine) 100 Mcg Tab 100 MCG PO DAILY Thyroid #30 Ref 0 TAB Oxycodone-Acetaminophen (Percocet) 10-325 mg Tab 1 TAB PO Q6H PRN PAIN Ref 0 TAB Zolpidem (Ambien) 5 Mg Tab 5 MG PO HS PRN INSOMNIA Ref 0 TAB Additional Information Written by Valentine Todd, acting as scribe for Dr. Bennett on 04/10/17 at 11:38. Valentine Hunt Apr 10, 2017 11:42 Loretta Bennett MD Apr 10, 2017 16:51
[2017-04-10] MEDS ORDERED: CIPR500T2 PO (12:59)
[2017-04-10] MEDS ORDERED: IPRASOL NEB (13:05)
[2017-04-10] MEDS ORDERED: LEVA750T9 PO (13:05)
[2017-04-10] MEDS ORDERED: PRED20 PO (13:05)
[2017-04-10] MEDS ORDERED: NICO21DI25 T-DERMAL (13:05)
[2017-04-10] MEDS ORDERED: NEBULIZER1 MI1 (13:07)
[2017-04-10] MEDS ORDERED: OXYGENDME NAS.CANULA (13:17)
== END 2017-04-10 15:00 | disposition left against medical advice (07) | DRG 872 ==
LOC: PHED 19:57 → PHEDA 22:51 → PH3B 04-09 00:05
PROVIDERS: ADMIT Hospitalist; ATTEND Hospitalist
DX: A41.9 Sepsis, unspecified organism (principal); N17.9 Acute kidney failure, unspecified; N39.0 Urinary tract infection, site not specified; J44.1 Chronic obstructive pulmonary disease with (acute) exacerbation; E03.9 Hypothyroidism, unspecified; F41.9 Anxiety disorder, unspecified; F17.210 Nicotine dependence, cigarettes, uncomplicated; G89.29 Other chronic pain; M54.5 Low back pain; M17.0 Bilateral primary osteoarthritis of knee; E86.0 Dehydration; B96.20 Unspecified Escherichia coli [E. coli] as the cause of diseases classified elsewhere
CPT/HCPCS: 71010; 74177; 80048; 80053; 81001; 82550; 83605; 83690; 83735; 83880; 84484; 85025; 85610; 85730; 87040; 87077; 87086; 87186; 87506; 93005; 94150; 94620; 94640; 94664; 96361; 96374; 96375; J1650; J1956; J2405; J2930; J7030; Q9967

== ENCOUNTER 2017-04-13 23:35 | Inpatient (IN) | payer OTHER ==
[~2017-04-13] VITALS: Ht 170.2 cm; Wt 89.7 kg
[~2017-04-13 23:35] MED LIST changes: +ALBU.5I NEB; +ALPR0.5T3 PO; +AMBI5TAB PO; -ASPI81 PO; +DICL75TA PO; -IBUP-232 PO; +IPRASOL NEB; +LEVA750T9 PO; +LEVO100T5 PO; +NEBULIZER1 MI1; +NICO21DI25 T-DERMAL; -OXYC-360 PO; +OXYGENDME NAS.CANULA; +PERC10TA27 PO; +PRED20 PO
[2017-04-13 23:48] VITALS: BP 165/89; PULSE 94; RESP 22; TEMP 98.2; O2SAT 97
[2017-04-13 23:49] VITALS: BP 167/92; PULSE 98; RESP 22; TEMP 98.4; O2SAT 97
--- NOTE | 2017-04-13 23:56 | PD ---
HPI Chief Complaint: Chest Pain Time Seen by Provider: 23:49 Travel History International Travel<30 days: No Contact w/Intl Traveler<30days: No Traveled to known affect area: No History of Present Illness HPI 56-year-old female presents to the emergency department for complaint of shortness of breath and chest pain. Patient was recently discharged from the hospital for admission for exacerbation of COPD sepsis and UTI. Patient had some basilar atelectasis but no evidence for pneumonia. Patient was started on Levaquin antibiotic and discharged on Levaquin antibiotic 04/10/17. Patient states that she's been home she's had no fever or chills. Patient's continued to have shortness of breath. Patient states she is very concerned there may be some type of mold in her home that causes her to have exacerbation of her COPD. Patient was also started on supplemental oxygen due to exertional dyspnea and desaturations noted in the hospital at time of discharge. Patient states she receives her supplemental oxygen delivery today by using her pulse oximetry she felt that her O2 saturations were dropping while on supplemental oxygen at rest so decided to come to the emergency room. Patient does not report chest pain at this time except for associated with cough. Patient states that if she needs to be admitted again she is fine with that. Patient has been taking antibiotic as prescribed along with prednisone. Patient also given a Decadron patch due to ongoing tobacco use. Patient denies other concerns or complaints. PFSH Past Medical History Narrative Medical COPD chronic pain syndrome arthritis hypothyroidism UTI; tobaccoism; nursing notes reviewed Arthritis: Yes (both knees) Asthma: Yes Anxiety: Yes Cancer: No Cardiovascular Problems: No Chemotherapy: No Congestive Heart Failure: No COPD: Yes Coronary Artery Disease: No Diabetes: No Diminished Hearing: No Endocrine: Yes Genitourinary: Yes (BLADDER LEAKAGE) Immune Disorder: No Musculoskeletal: Yes Neurologic: No Psychiatric: No Reproductive: No Respiratory: Yes Radiation Therapy: No Thyroid Disease: Yes Tetanus Vaccination: < 5 Years Influenza Vaccination: Yes ?: Not Menopausal: Yes : 3 Para: 3 Past Surgical History Other Surgery: Yes Social History Alcohol Use: No Tobacco Use: Yes (1 PPD) Substance Use: No Allergies-Medications (Allergen,Severity, Reaction): Coded Allergies: Penicillin (Verified Allergy, Severe, 04/08/17) *MDRO Multi-Drug Resistant Organism (Verified Adverse Reaction, Unknown, ) ESBL-Ecoli- (urine) 04/08/17 Reported Meds & Prescriptions Reported Meds & Active Scripts Active Oxygen (O2) Device 2 Liter JOSE ANGEL.CANULA CONTINUOUS Oxygen Concentrator Portable Gaseous 2 L/min via Nasal Canula Continuous For 99 months Nebulizer 1 Mis Mis 1 Ea .ROUTE DIRECTED Levaquin (Levofloxacin) 750 Mg Tablet 750 Mg PO DAILY 7 Days Prednisone 20 Mg Tab 40 Mg PO DAILY 5 Days Take 40 mg (2 tablets) daily for 5 days Eq Nicotine (Nicotine) 21 Mg/24 Hr Dis 1 Patch T-DERMAL DAILY Duoneb (Ipratropium-Albuterol Neb) 0.5-2.5 Mg/3 Ml Neb 1 Ampule NEB Q6HR NEB 30 Days Reported Alprazolam 0.5 Mg Tab 0.5 Mg PO BID PRN Ambien (Zolpidem Tartrate) 5 Mg Tab 5 Mg PO HS PRN Percocet (Oxycodone-Acetaminophen) 10-325 mg Tab 1 Tab PO Q6H PRN Diclofenac Sodium DR (Diclofenac Sodium) 75 Mg Tabdr 75 Mg PO BID Levothyroxine (Levothyroxine Sodium) 100 Mcg Tab 100 Mcg PO DAILY Albuterol Neb (Albuterol Sulfate) 2.5 Mg/0.5 Ml Neb 2.5 Mg NEB Q6HR NEB PRN Note: The Albuterol Sulfate Inhalation Solution is concentrated and must be diluted. Read complete instructions carefully before using. Proventil Hfa 6.7 GM Inh (Albuterol Sulfate) 90 Mcg/Act Aer 2 Puff INH Q4-6H PRN Review of Systems Except as stated in HPI: all other systems reviewed are Neg General / Constitutional: No: Fever, Chills HENT: Positive: Congestion Cardiovascular: Positive: Chest Pain or Discomfort Respiratory: Positive: Cough, Shortness of Breath, Wheezing Gastrointestinal: Positive: Nausea, Vomiting, No: Abdominal Pain Genitourinary: No: Dysuria, Flank Pain Musculoskeletal: No: Myalgias, Arthralgias, Edema, Pain Skin: No Rash Neurologic: No: Weakness Psychiatric: No: Anxiety Hematologic/Lymphatic: No: Lymph Node Enlargement Physical Exam Narrative GENERAL: Well-developed well-nourished female in no acute distress no respiratory distress room air O2 saturation 95% blood pressure 167/102 respiratory rate 18 heart rate 96 SKIN: Warm and dry. HEAD: Normocephalic. EYES: No scleral icterus. No injection or drainage. NECK: Supple, trachea midline. No JVD or lymphadenopathy. CARDIOVASCULAR: Regular rate and rhythm without murmurs, gallops, or rubs. RESPIRATORY: Breath sounds equal bilaterally diffuse rhonchi. No accessory muscle use. GASTROINTESTINAL: Abdomen soft, non-tender, nondistended. MUSCULOSKELETAL: No cyanosis, or edema. Radial and dorsalis pedis pulses 2+ to palpation. BACK: Nontender without obvious deformity. No CVA tenderness. Data Data Last Documented VS Vital Signs Date Time Temp Pulse Resp B/P Pulse Ox O2 Delivery O2 Flow Rate FiO2 04/14/17 01:04 97.8 76 16 138/84 97 Nasal Cannula 2 Orders Complete Blood Count With Diff (04/13/17 23:49) Basic Metabolic Panel (Bmp) (04/13/17 23:49) B-Type Natriuretic Peptide (04/13/17 23:49) Magnesium (Mg) (04/13/17 23:49) Ckmb (Isoenzyme) Profile (04/13/17 23:49) Troponin I (04/13/17 23:49) Iv Access Insert/Monitor (04/13/17 23:49) Electrocardiogram (04/13/17 23:49) Ecg Monitoring (04/13/17 23:49) Oximetry (04/13/17 23:49) Oxygen Administration (04/13/17 23:49) Chest, Single Ap (04/13/17 23:49) Sodium Chloride 0.9% Flush (Ns Flush) (04/14/17 00:00) Methylprednisolone So Succ Inj (Solumedr (04/14/17 00:00) Albuterol-Ipratropium Neb (Duoneb Neb) (04/14/17 00:00) Metoclopramide Inj (Reglan Inj) (04/14/17 00:00) Lactic Acid (04/13/17 23:49) Aspirin Chew (Aspirin Chew) (04/14/17 01:00) Potassium Chloride (Kcl) (04/14/17 01:15) Sodium Chlorid 0.9% 500 Ml Inj (Ns 500 M (04/14/17 01:15) Albuterol-Ipratropium Neb (Duoneb Neb) (04/14/17 01:15) Place In Observation (04/14/17 ) Vital Signs (Adult) Q4H (04/14/17 01:26) Activity Oob With Assistance (04/14/17:26) Short Order Fry Cook / Telemetry .CONTINUOUS (04/14/17 01:26) Diet Heart Healthy (04/14/17 Breakfast) Sodium Chloride 0.9% Flush (Ns Flush) (04/14/17 01:30) Sodium Chloride 0.9% Flush (Ns Flush) (04/14/17 09:00) Basic Metabolic Panel (Bmp) (04/15/17 06:00) Complete Blood Count With Diff (04/15/17 06:00) Naloxone Inj (Narcan Inj) (04/14/17 01:30) Labs Laboratory Tests Test 04/14/17 00:00 White Blood Count 14.7 TH/MM3 Red Blood Count 5.16 MIL/MM3 Hemoglobin 14.5 GM/DL Hematocrit 43.6 % Mean Corpuscular Volume 84.6 FL Mean Corpuscular Hemoglobin 28.1 PG Mean Corpuscular Hemoglobin 33.2 % Concent Red Cell Distribution Width 14.0 % Platelet Count 254 TH/MM3 Mean Platelet Volume 10.0 FL Neutrophils (%) (Auto) 70.4 % Lymphocytes (%) (Auto) 21.8 % Monocytes (%) (Auto) 5.6 % Eosinophils (%) (Auto) 0.6 % Basophils (%) (Auto) 1.6 % Neutrophils # (Auto) 10.4 TH/MM3 Lymphocytes # (Auto) 3.2 TH/MM3 Monocytes # (Auto) 0.8 TH/MM3 Eosinophils # (Auto) 0.1 TH/MM3 Basophils # (Auto) 0.2 TH/MM3 CBC Comment DIFF FINAL Differential Comment Sodium Level 140 MEQ/L Potassium Level 3.3 MEQ/L Chloride Level 104 MEQ/L Carbon Dioxide Level 27.2 MEQ/L Anion Gap 9 MEQ/L Blood Urea Nitrogen 30 MG/DL Creatinine 1.00 MG/DL Estimat Glomerular Filtration 58 ML/MIN Rate Random Glucose 116 MG/DL Lactic Acid Level 2.1 mmol/L Calcium Level 8.4 MG/DL Magnesium Level 1.8 MG/DL Total Creatine Kinase 24 U/L Troponin I LESS THAN 0.02 NG/ML B-Type Natriuretic Peptide 26 PG/ML MDM Medical Decision Making Medical Screen Exam Complete: Yes Emergency Medical Condition: Yes Medical Record Reviewed: Yes Interpretation(s) EKG: Normal sinus rhythm rate 89 left atrial enlargement no acute ST elevation injury pattern or ectopy noted Troponin I less than 0.22, not elevated Lactic acid 2.100 with elevated Last Impressions Chest X-Ray 04/13/17 2349 Signed Impressions: Service Date/Time: Thursday, April 13, 2017 23:56 - CONCLUSION: No acute disease. Chidi Gamboa MD CBC & BMP Diagram 04/14/17 00:00 Vital Signs Date Time Temp Pulse Resp B/P Pulse Ox O2 Delivery O2 Flow Rate FiO2 04/14/17 01:04 97.8 76 16 138/84 97 Nasal Cannula 2 04/14/17 00:46 82 18 134/78 96 Nasal Cannula 04/13/17 23:57 97 Nasal Cannula 2.00 04/13/17 23:49 98.4 98 22 167/92 97 Nasal Cannula 04/13/17 23:48 98.2 94 22 165/89 97 Nasal Cannula 2 04/13/17 23:40 97 Nasal Cannula 2 Differential Diagnosis Exacerbation COPD, CHF, PE, ACS Narrative Course Patient placed on battery recharger IV access obtained specimens collected and sent for resulting EKG performed which reveals no acute injury pattern change; patient given Solu-Medrol 125 mg IV times one dose and 2 DuoNeb updrafts ordered patient also received a one-time dose of aspirin 162 mg Repeat DuoNeb updraft Patient will be admitted for exacerbation COPD as ongoing wheezing and c/o dyspnea after updrafts --O2 sats improved no chest pain and no pleuritic chest pain discussed with [facility] MD Dr Judd --OBS for exacerbation copd Sepsis Criteria SIRS Criteria (2 or more): Heart rate over 90, RR > 20 or PaCO2 < 32, WBC > 83558, < 4000 or > 10% bands Sepsis Criteria (SIRS+source): Infect source susp/known (actice uti e coli esbl treatment --levaquin) Diagnosis Primary Impression: COPD with acute exacerbation Additional Impression: UTI due to extended-spectrum beta lactamase (ESBL) producing Escherichia coli Admitting Information Admitting Physician Requests: Observation Paulette Medrano MD Apr 13, 2017 23:56
[2017-04-13 23:57] VITALS: O2SAT 97
[2017-04-14] VITALS (12 sets, daily range): BP systolic 134–159; BP diastolic 71–92; PULSE 73–101; RESP 14–21; TEMP 96.2–98.7; O2SAT 92–97
[2017-04-14] MEDS ORDERED: methylPREDNISolone SOD SUCC 125 MG/2 ML VIAL IVP ONE
[2017-04-14] MEDS ORDERED: METOCLOPRAMIDE HCL 10 MG/2 ML VIAL IV PUSH ONE
[2017-04-14] MEDS: RESP: ALBUTEROL 2.5 MG/IPRATROPIUM 0.5 MG NEB (SCH) INH ×2 (00:01)
--- NOTE | 2017-04-14 00:15 | RADRPT ---
EXAM DATE/TIME: 04/13/2017 23:56 [facility] COMPARISON: CHEST SINGLE AP, April 08, 2017, 20:33. INDICATIONS : Shortness of breath. MEDICAL HISTORY : Chronic obstructive pulmonary disease. SURGICAL HISTORY : None. ENCOUNTER: Initial ACUITY: 1 day PAIN SCORE: 0/10 LOCATION: Bilateral chest FINDINGS: A single view of the chest demonstrates the lungs to be symmetrically aerated without evidence of mas s, infiltrate or effusion. The cardiomediastinal contours are unremarkable. Osseous structures are intact. CONCLUSION: No acute disease. Chidi Gamboa MD on April 14, 2017 at 0:14 Board Certified Radiologist. This report was verified electronically.
[2017-04-14 00:37] LABS: CHLORIDE 104 MEQ/L (98-107); POTASSIUM 3.3 MEQ/L (3.5-5.1); SODIUM (NA) 140 MEQ/L (136-145)
[2017-04-14 00:38] LABS: AUTOMATED NEUTROPHIL # 10.4 TH/MM3 (1.8-7.7); BASOPHIL # 0.2 TH/MM3 (0-0.2); BASOPHIL % 1.6 % (0.0-2.0); EOSINOPHIL # 0.1 TH/MM3 (0-0.4); EOSINOPHIL % 0.6 % (0.0-4.0); HEMATOCRIT 43.6 % (35.0-46.0); HEMO FLAGS DIFF FINAL; LYMPH % 21.8 % (9.0-44.0); LYMPHOCYTE # 3.2 TH/MM3 (1.0-4.8); MEAN CELL VOLUME 84.6 FL (80.0-100.0); MEAN CORPUSCULAR HEMOGLOBIN 28.1 PG (27.0-34.0); MEAN CORPUSCULAR HGB CONC 33.2 % (32.0-36.0); MONO % 5.6 % (0.0-8.0); NEUT % 70.4 % (16.0-70.0); PLATELET COUNT 254 TH/MM3 (150-450); RED BLOOD COUNT 5.16 MIL/MM3 (4.00-5.30); WHITE BLOOD COUNT 14.7 TH/MM3 (4.0-11.0)
[2017-04-14 00:40] LABS: ANION GAP 9 MEQ/L (5-15); BICARBONATE 27.2 MEQ/L (21.0-32.0); BLOOD UREA NITROGEN 30 MG/DL (7-18); MAGNESIUM 1.8 MG/DL (1.5-2.5)
[2017-04-14 00:44] LABS: GLOMERULAR FILTRATION RATE 58 ML/MIN (>89)
[2017-04-14 00:47] LABS: CREATINE KINASE 24 U/L (26-192)
[2017-04-14] MEDS ORDERED: ASPIRIN 81 MG CHEW TAB CHEW ONE (01:00)
[2017-04-14] MEDS ORDERED: SODIUM CHLORID 0.9% 500 ML INJ 500 ML IV ONE (01:15)
[2017-04-14] MEDS ORDERED: POTASSIUM CHLORIDE 20 MEQ CONTROLLED RELEASE TAB PO ONE (01:15)
[2017-04-14] MEDS ORDERED: RESP: ALBUTEROL 2.5 MG/IPRATROPIUM 0.5 MG NEB (SCH) NEB ONE (01:15)
[2017-04-14] MEDS ORDERED: NALOXONE HCL 0.4 MG/ML AMP IV PRN (01:30)
[2017-04-14] MEDS ORDERED: SODIUM CHLORIDE 0.9% FLUSH 10 ML FLUSH IVF PRN ×2 (01:30)
[2017-04-14] MEDS ORDERED: SODIUM CHLORIDE 0.9% FLUSH 10 ML FLUSH IV FLUSH PRN (01:30)
[2017-04-14] MEDS ORDERED: RESP: ALBUTEROL 2.5 MG/IPRATROPIUM 0.5 MG NEB (PRN) NEB (01:30)
[2017-04-14] MEDS ORDERED: NICOTINE 21 MG/24 HR PATCH T-DERMAL ONE (02:15)
[2017-04-14] MEDS ORDERED: oxyCODONE/ACETAMINOPHEN 5 MG/325 MG TAB PO ONE (02:15)
[2017-04-14] MEDS: RESP: ALBUTEROL 2.5 MG/IPRATROPIUM 0.5 MG NEB (SCH) NEB ×6 (04:11→23:19)
[2017-04-14] MEDS: methylPREDNISolone SOD SUCC 40 MG/1 ML VIAL IV PUSH SCH ×3 (06:12→17:45)
[2017-04-14] MEDS ORDERED: ASPIRIN 81 MG CHEW TAB CHEW SCH (09:00)
[2017-04-14] MEDS ORDERED: SODIUM CHLORIDE 0.9% FLUSH 10 ML FLUSH IV FLUSH SCH (09:00)
[2017-04-14] MEDS: SODIUM CHLORIDE 0.9% FLUSH 10 ML FLUSH IV FLUSH SCH ×2 (09:00→21:08)
[2017-04-14] MEDS: LEVOFLOXACIN 750 MG TAB PO SCH (09:19)
[2017-04-14] MEDS: PANTOPRAZOLE SOD 40 MG DELAYED RELEASE TAB PO SCH (09:19)
--- NOTE | 2017-04-14 09:48 | HHI.HP ---
[facility] Service [facility] Primary Care Physician Radha Morgan M.D. Admission Diagnosis exacerbation copd Diagnoses: Chief Complaint: Short of breath Travel History International Travel<30 Days: No Contact w/Intl Traveler <30 Da: No Traveled to Known Affected Are: No History of Present Illness Patient is a 56-year-old female with a known history of COPD and home O2 usage. Patient was recently discharged after being treated for acute exacerbation of COPD. Patient says she's been increasingly short of breath and dyspneic since discharge. She is concerned that her apartment has some mold which is causing her recurrence of symptoms. Patient is not been hypoxemic but complains of increased shortness of breath and dyspnea on exertion with increased phlegm production and has been nauseated. Patient has been using her nebulizers and oxygen at home. She was discharged on oral antibiotics. She continues to smoke a pack a day. Patient says she is increasingly anxious because of her risk of exposure to mold in her home. In the hospital she has been tachypneic, tachycardic with leukocytosis and elevated lactic acid. On my review x-ray of the chest is unremarkable for infiltrate or pneumonia. Patient notes no dysuria. Patient is recommended for admission to the hospital due to signs and symptoms of sepsis with a COPD exacerbation. Review of Systems Constitutional: DENIES: Diaphoretic episodes, Fatigue, Fever, Weight gain, Weight loss, Chills, Dizziness, Change in appetite, Night Sweats Endocrine: DENIES: Abnorml menstrual pattern, Heat/cold intolerance, Polydipsia , Polyuria, Polyphagia Eyes: DENIES: Blurred vision, Diplopia, Eye inflammation, Eye pain, Vision loss , Photosensitivity, Double Vision Ears, nose, mouth, throat: DENIES: Tinnitus, Hearing loss, Vertigo, Nasal discharge, Oral lesions, Throat pain, Hoarseness, Ear Pain, Running Nose, Epistaxis, Sinus Pain, Toothache, Odynophagia Respiratory: COMPLAINS OF: Cough, Wheezing, Sputum production, Shortness of breath, DENIES: Apneas, Snoring, Hemoptysis Cardiovascular: COMPLAINS OF: Chest pain, Dyspnea on Exertion, DENIES: Palpitations, Syncope, PND, Lower Extremity Edema, Orthopnea, Claudication Gastrointestinal: COMPLAINS OF: Nausea, Vomiting, DENIES: Abdominal pain, Black stools, Bloody stools, Constipation, Diarrhea, Difficulty Swallowing, Anorexia Genitourinary: DENIES: Abnormal vaginal bleeding, Dysmenorrhea, Dyspareunia, Sexual dysfunction, Urinary frequency, Urinary incontinence, Urgency, Hematuria , Dysuria, Nocturia, Vaginal discharge Musculoskeletal: DENIES: Joint pain, Muscle aches, Stiffness, Joint Swelling, Back pain, Neck pain Integumentary: DENIES: Abnormal pigmentation, Pruritus, Rash, Nail changes, Breast masses, Breast skin changes, Nipple discharge Hematologic/lymphatic: DENIES: Bruising, Lymphadenopathy Immunologic/allergic: DENIES: Eczema, Urticaria Neurologic: DENIES: Abnormal gait, Headache, Localized weakness, Paresthesias, Seizures, Speech Problems, Tremor, Poor Balance Psychiatric: COMPLAINS OF: Anxiety, DENIES: Confusion, Mood changes, Depression, Hallucinations, Agitation, Suicidal Ideation, Homicidal Ideation, Delusions Except as stated in HPI: all other systems reviewed are Neg Past Family Social History Past Medical History COPD Anxiety Chronic arthritis Past Surgical History Orthopedic surgeries Reported Medications Reviewed in the medical record, no longer taking diclofenac Allergies: Coded Allergies: Penicillin (Verified Allergy, Severe, 04/08/17) *MDRO Multi-Drug Resistant Organism (Verified Adverse Reaction, Unknown, ) ESBL-Ecoli- (urine) 04/08/17 Active Ordered Medications Reviewed in the medical record Family History Mother had breast cancer, father had colon cancer and committed suicide Social History Still smokes a pack a day tobacco Lives with her daughter No alcohol dependence Physical Exam Vital Signs Vital Signs Date Time Temp Pulse Resp B/P Pulse Ox O2 Delivery O2 Flow Rate FiO2 04/14/17 07:54 96 Nasal Cannula 2.00 04/14/17 04:37 73 18 94 04/14/17 03:34 75 14 159/89 96 04/14/17 03:30 97.6 80 16 141/85 96 04/14/17 02:00 84 18 156/92 97 Nasal Cannula 2 04/14/17 01:04 97.8 76 16 138/84 97 Nasal Cannula 2 04/14/17 00:46 82 18 134/78 96 Nasal Cannula 04/13/17 23:57 97 Nasal Cannula 2.00 04/13/17 23:49 98.4 98 22 167/92 97 Nasal Cannula 04/13/17 23:48 98.2 94 22 165/89 97 Nasal Cannula 2 04/13/17 23:40 97 Nasal Cannula 2 Physical Exam GENERAL: This is a well-nourished, well-developed patient, short of breath with exertion SKIN: No rashes, ecchymoses or lesions. Cool and dry. HEAD: Atraumatic. Normocephalic. No temporal or scalp tenderness. EYES: Pupils equal round and reactive. Extraocular motions intact. No scleral icterus. No injection or drainage. ENT: Nose without bleeding, purulent drainage or septal hematoma. Throat without erythema, tonsillar hypertrophy or exudate. Uvula midline. Airway patent. NECK: Trachea midline. No JVD or lymphadenopathy. Supple, nontender, no meningeal signs. CARDIOVASCULAR: Sinus tachycardia without murmurs, gallops, or rubs. RESPIRATORY: Clear to auscultation. Breath sounds equal bilaterally. No wheezes , rales, or rhonchi. GASTROINTESTINAL: Abdomen soft, non-tender, nondistended. No hepato-splenomegaly , or palpable masses. No guarding. MUSCULOSKELETAL: Extremities without clubbing, cyanosis, or edema. No joint tenderness, effusion, or edema noted. No calf tenderness. Negative Homans sign bilaterally. NEUROLOGICAL: Awake and alert. Cranial nerves II through XII intact. Motor and sensory grossly within normal limits. Five out of 5 muscle strength in all muscle groups. Normal speech. Laboratory Laboratory Tests Test 04/14/17 00:00 White Blood Count 14.7 Red Blood Count 5.16 Hemoglobin 14.5 Hematocrit 43.6 Mean Corpuscular Volume 84.6 Mean Corpuscular Hemoglobin 28.1 Mean Corpuscular Hemoglobin 33.2 Concent Red Cell Distribution Width 14.0 Platelet Count 254 Mean Platelet Volume 10.0 Neutrophils (%) (Auto) 70.4 Lymphocytes (%) (Auto) 21.8 Monocytes (%) (Auto) 5.6 Eosinophils (%) (Auto) 0.6 Basophils (%) (Auto) 1.6 Neutrophils # (Auto) 10.4 Lymphocytes # (Auto) 3.2 Monocytes # (Auto) 0.8 Eosinophils # (Auto) 0.1 Basophils # (Auto) 0.2 CBC Comment DIFF FINAL Differential Comment Sodium Level 140 Potassium Level 3.3 Chloride Level 104 Carbon Dioxide Level 27.2 Anion Gap 9 Blood Urea Nitrogen 30 Creatinine 1.00 Estimat Glomerular Filtration 58 Rate Random Glucose 116 Lactic Acid Level 2.1 Calcium Level 8.4 Magnesium Level 1.8 Total Creatine Kinase 24 Troponin I LESS THAN 0.02 B-Type Natriuretic Peptide 26 Result Diagram: 04/14/17 0000 04/14/17 0000 Imaging Last Impressions Chest X-Ray 04/13/17 4529 Signed Impressions: Service Date/Time: Thursday, April 13, 2017 23:56 - CONCLUSION: No acute disease. Chidi Gamboa MD Assessment and Plan Problem List: (1) COPD with acute exacerbation ICD Code: J44.1 Status: Acute Plan: Patient with chest tightness, tachypnea and evidence of resolving sepsis (tachypnea, tachycardia, leukocytosis and elevated lactic acid Continue IV steroids, bronchodilators, continue Levaquin (2) Hypothyroidism ICD Code: E03.9 Status: Acute Plan: Continue levothyroxine (3) Anxiety ICD Code: F41.9 Status: Acute Plan: Patient will resume Ativan Physician Certification 2 Midnight Certification Type: Admission for Inpatient Services Order for Inpatient Services The services are ordered in accordance with Medicare regulations or non- Medicare payer requirements, as applicable. In the case of services not specified as inpatient-only, they are appropriately provided as inpatient services in accordance with the 2-midnight benchmark. Estimated LOS (days): 3 3 days is the estimated time the patient will need to remain in the hospital, assuming treatment plan goals are met and no additional complications. Post-Hospital Plan: Lucero Pierce MD Apr 14, 2017 09:48
[2017-04-14] MEDS: LEVOTHYROXINE SODIUM 100 MCG TAB PO SCH (09:53)
[2017-04-14] MEDS: oxyCODONE/ACETAMINOPHEN 10 MG/325 MG TAB PO PRN ×3 (09:57→21:07)
[2017-04-14] MEDS ORDERED: ALPRAZolam 0.5 MG TAB PO PRN (10:00)
[2017-04-14] MEDS ORDERED: POTASSIUM CHLORIDE 10 MEQ CONTROLLED RELEASE TAB PO ONE (10:00)
[2017-04-14] MEDS ORDERED: ZOLPIDEM TARTRATE 5 MG TAB PO PRN (10:00)
[2017-04-14] MEDS ORDERED: ONDANSETRON ODT 4 MG TAB PO PRN (10:00)
[2017-04-14] MEDS: ALPRAZolam 0.5 MG TAB PO PRN ×2 (14:51→21:05)
--- NOTE | 2017-04-14 15:35 | EKG ---
Date Performed: 04/13/2017 Time Performed: 23:46:40 PTAGE: 56 years EKG: Sinus rhythm POSSIBLE LEFT ATRIAL ENLARGEMENT BORDERLINE ECG PREVIOUS TRACING : 04/08/2017 20.45 DOCTOR: Martín Jimenez Interpretating Date/Time 04/14/2017 15:33:12
[2017-04-15 00:46] VITALS: BP 144/83; PULSE 95; RESP 18; TEMP 96.2; O2SAT 95
[2017-04-15] MEDS: methylPREDNISolone SOD SUCC 40 MG/1 ML VIAL IV PUSH SCH ×2 (00:55→05:19)
[2017-04-15] MEDS: RESP: ALBUTEROL 2.5 MG/IPRATROPIUM 0.5 MG NEB (SCH) NEB ×3 (03:43→11:46)
[2017-04-15 04:00] VITALS: BP 150/84; PULSE 82; RESP 18; TEMP 96.4; O2SAT 96
[2017-04-15] MEDS: ALPRAZolam 0.5 MG TAB PO PRN ×2 (04:16→09:56)
[2017-04-15] MEDS: oxyCODONE/ACETAMINOPHEN 10 MG/325 MG TAB PO PRN ×2 (04:17→09:56)
[2017-04-15] MEDS ORDERED: NICOTINE 21 MG/24 HR PATCH T-DERMAL ONE (04:45)
[2017-04-15] MEDS: LEVOTHYROXINE SODIUM 100 MCG TAB PO SCH (05:20)
[2017-04-15 06:06] LABS: AUTOMATED NEUTROPHIL # 17.5 TH/MM3 (1.8-7.7); BASOPHIL # 0.1 TH/MM3 (0-0.2); BASOPHIL % 0.5 % (0.0-2.0); EOSINOPHIL % 0.1 % (0.0-4.0); HEMATOCRIT 40.8 % (35.0-46.0); LYMPH % 6.5 % (9.0-44.0); LYMPHOCYTE # 1.3 TH/MM3 (1.0-4.8); MEAN CELL VOLUME 85.3 FL (80.0-100.0); MEAN CORPUSCULAR HEMOGLOBIN 28.4 PG (27.0-34.0); MEAN CORPUSCULAR HGB CONC 33.3 % (32.0-36.0); MONO % 2.2 % (0.0-8.0); NEUT % 90.7 % (16.0-70.0); PLATELET COUNT 268 TH/MM3 (150-450); RED BLOOD COUNT 4.78 MIL/MM3 (4.00-5.30); RED CELL DISTRIBUTION WIDTH 14.3 % (11.6-17.2); WHITE BLOOD COUNT 19.3 TH/MM3 (4.0-11.0)
[2017-04-15 06:23] LABS: BICARBONATE 28.6 MEQ/L (21.0-32.0); POTASSIUM 4.3 MEQ/L (3.5-5.1)
[2017-04-15 06:24] LABS: HEMO FLAGS DIFF FINAL
[2017-04-15 07:29] VITALS: O2SAT 95
[2017-04-15 08:00] VITALS: BP 144/88; PULSE 82; RESP 19; TEMP 96.4; O2SAT 96
[2017-04-15] MEDS ORDERED: NICOTINE 21 MG/24 HR PATCH T-DERMAL SCH (09:00)
[2017-04-15] MEDS: LEVOFLOXACIN 750 MG TAB PO SCH (09:56)
[2017-04-15] MEDS: PANTOPRAZOLE SOD 40 MG DELAYED RELEASE TAB PO SCH (09:56)
[2017-04-15] MEDS: SODIUM CHLORIDE 0.9% FLUSH 10 ML FLUSH IV FLUSH SCH (09:57)
[2017-04-15] MEDS ORDERED: LEVA750T9 PO (10:07)
--- NOTE | 2017-04-15 10:08 | HHI.DCPOC ---
Discharge Care Plan Diagnosis: (1) COPD with acute exacerbation Goals to Promote Your Health * To prevent worsening of your condition and complications * To maintain your health at the optimal level Directions to Meet Your Goals Take your medications as prescribed Follow your dietary instruction Follow activity as directed Keep your appointments as scheduled Take your immunizations and boosters as scheduled If your symptoms worsen call your PCP, if no PCP go to Urgent Care Center or Emergency Room Smoking is Dangerous to Your Health. Avoid second hand smoke Call the 24-hour hour crisis hotline for domestic abuse at Lucero France MD Apr 15, 2017 10:08
--- NOTE | 2017-04-15 10:11 | HHI.DS ---
Discharge Summary Admission Date Apr 14, 2017 at 09:40 Discharge Date: Apr 15, 2017 Admitting Diagnosis exacerbation copd (1) COPD with acute exacerbation ICD Code: J44.1 (2) Hypothyroidism ICD Code: E03.9 (3) Anxiety ICD Code: F41.9 Procedures none Brief History - From Admission Patient is a 56-year-old female with a known history of COPD and home O2 usage. Patient was recently discharged after being treated for acute exacerbation of COPD. Patient says she's been increasingly short of breath and dyspneic since discharge. She is concerned that her apartment has some mold which is causing her recurrence of symptoms. Patient is not been hypoxemic but complains of increased shortness of breath and dyspnea on exertion with increased phlegm production and has been nauseated. Patient has been using her nebulizers and oxygen at home. She was discharged on oral antibiotics. She continues to smoke a pack a day. Patient says she is increasingly anxious because of her risk of exposure to mold in her home. In the hospital she has been tachypneic, tachycardic with leukocytosis and elevated lactic acid. On my review x-ray of the chest is unremarkable for infiltrate or pneumonia. Patient notes no dysuria. Patient is recommended for admission to the hospital due to signs and symptoms of sepsis with a COPD exacerbation. CBC/BMP: 04/15/17 0457 04/15/17 0457 Significant Findings Laboratory Tests Test 04/14/17 04/15/17 00:00 04:57 White Blood Count 14.7 TH/MM3 19.3 TH/MM3 (4.0-11.0) (4.0-11.0) Neutrophils (%) (Auto) 70.4 % 90.7 % (16.0-70.0) (16.0-70.0) Neutrophils # (Auto) 10.4 TH/MM3 17.5 TH/MM3 (1.8-7.7) (1.8-7.7) Potassium Level 3.3 MEQ/L (3.5-5.1) Blood Urea Nitrogen 30 MG/DL (7-18) 21 MG/DL (7-18) Estimat Glomerular Filtration 58 ML/MIN (>89) 67 ML/MIN (>89) Rate Random Glucose 116 MG/DL 146 MG/DL (74-106) (74-106) Lactic Acid Level 2.1 mmol/L (0.4-2.0) Calcium Level 8.4 MG/DL (8.5-10.1) Total Creatine Kinase 24 U/L (26-192) Troponin I LESS THAN 0.02 NG/ML (0.02-0.05) Lymphocytes (%) (Auto) 6.5 % (9.0-44.0) Pt update on day of discharge Patient seen in follow up for a mild COPD exacerbation and for anxiety. Patient restart status is improved. No new complaints overnight. Discharge plans discussed with patient. Hospital Course Patient was seen and treated for COPD exacerbation and required IV steroids, bronchodilator therapy. She was given antibiotics. Her respiratory status continued to improve and she was discharged home Pt Condition on Discharge: Good Discharge Disposition: Discharge Home Discharge Time: <= 30 minutes Discharge Instructions DIET: Follow Instructions for: As Tolerated, No Restrictions Activities you can perform: Regular-No Restrictions Follow up Referrals: PCP Follow-up New Medications: Levofloxacin (Levaquin) 750 Mg Tablet 750 MG PO DAILY Infection #6 TAB Continued Medications: Albuterol 6.7 GM Inh (Proventil Hfa 6.7 GM Inh) 90 Mcg/Act Aer 2 PUFF INH Q4-6H PRN SHORTNESS OF BREATH #1 Ref 0 INHALER Albuterol Neb (Albuterol Neb) 2.5 Mg/0.5 Ml Neb 2.5 MG NEB Q6HR NEB Note: The Albuterol Sulfate Inhalation Solution is concentrated and must be diluted. Read complete instructions carefully before using. PRN SOB/WHEEZING BOX Alprazolam (Alprazolam) 0.5 Mg Tab 0.5 MG PO BID PRN ANXIETY Ref 0 TAB Ipratropium-Albuterol Neb (Duoneb) 0.5-2.5 Mg/3 Ml Neb 1 AMPULE NEB Q6HR NEB Breathing Treatment Days 30 ML Levothyroxine (Levothyroxine) 100 Mcg Tab 100 MCG PO DAILY Thyroid #30 Ref 0 TAB Oxycodone-Acetaminophen (Percocet) 10-325 mg Tab 1 TAB PO Q6H PRN PAIN Ref 0 TAB Prednisone (Prednisone) 20 Mg Tab 40 MG PO DAILY Take 40 mg (2 tablets) daily for 5 days COPD exacerbation Days 5 Ref 0 TAB Zolpidem (Ambien) 5 Mg Tab 5 MG PO HS PRN INSOMNIA Ref 0 TAB Discontinued Medications: Levofloxacin (Levaquin) 750 Mg Tablet 750 MG PO DAILY Infection Days 7 TAB Lucero France MD Apr 15, 2017 10:11
[2017-04-16] MEDS ORDERED: REMOVE OLD PATCH T-DERMAL SCH (09:00)
== END 2017-04-15 13:30 | disposition home or self-care (01) | DRG 872 ==
LOC: PHED 23:35 → PHEDA 04-14 01:28 → PHICU 04-14 03:25 → OBSVTOIN 04-14 09:40 → PH3A 04-14 18:46
PROVIDERS: ADMIT Hospitalist; ATTEND Hospitalist
DX: A41.9 Sepsis, unspecified organism (principal); J44.1 Chronic obstructive pulmonary disease with (acute) exacerbation; Z99.81 Dependence on supplemental oxygen; N39.0 Urinary tract infection, site not specified; B96.20 Unspecified Escherichia coli [E. coli] as the cause of diseases classified elsewhere; Z16.12 Extended spectrum beta lactamase (ESBL) resistance; F17.210 Nicotine dependence, cigarettes, uncomplicated; G89.4 Chronic pain syndrome; M19.90 Unspecified osteoarthritis, unspecified site; E03.9 Hypothyroidism, unspecified; F41.9 Anxiety disorder, unspecified; R00.0 Tachycardia, unspecified; R06.82 Tachypnea, not elsewhere classified
CPT/HCPCS: 71010; 80048; 82550; 83605; 83735; 83880; 84484; 85025; 93005; 94640; 94664; 96361; 96374; 96375; 96376; J2765; J2920; J2930; J7040

== ENCOUNTER 2017-04-29 17:40 | Emergency (ER) | payer OTHER, MEDICAID ==
[~2017-04-29] VITALS: Ht 170.2 cm; Wt 93.3 kg
[~2017-04-29 17:40] MED LIST changes: -DICL75TA PO; -NEBULIZER1 MI1; -NICO21DI25 T-DERMAL
[2017-04-29 17:50] VITALS: BP 132/76; PULSE 86; RESP 19; TEMP 97.9; O2SAT 95
--- NOTE | 2017-04-29 18:01 | PD ---
HPI Chief Complaint: left leg pain and swelling Time Seen by Provider: 17:58 Travel History International Travel<30 days: No Contact w/Intl Traveler<30days: No History of Present Illness HPI Patient is 56 years old. She has pain and swelling in the left lower leg but the region of the calf. A few days prior she had a fall. Prior to that she was admitted inpatient for pneumonia. She has no shortness of breath today however reports pain in the legs. She was seen in urgent care center and was sent here to undergo Doppler evaluation of the bilateral lower extremities to rule out DVT. The patient also has had urinary frequency consistent with prior diagnosis of UTI. PFSH Past Medical History Arthritis: Yes (both knees) Asthma: Yes Anxiety: Yes Depression: No Cancer: No Cardiovascular Problems: No Chemotherapy: No Congestive Heart Failure: No COPD: Yes Coronary Artery Disease: No Diabetes: No Diminished Hearing: No Endocrine: Yes Genitourinary: Yes (BLADDER LEAKAGE) Immune Disorder: No Musculoskeletal: Yes Neurologic: No Psychiatric: No Reproductive: No Respiratory: Yes Radiation Therapy: No Thyroid Disease: Yes Menopausal: Yes : 3 Para: 3 Past Surgical History Other Surgery: Yes Social History Alcohol Use: No Tobacco Use: Yes (1 PPD) Substance Use: No Allergies-Medications (Allergen,Severity, Reaction): Coded Allergies: penicillin G (Unverified Allergy, Severe, 04/29/17) *MDRO Multi-Drug Resistant Organism (Verified Adverse Reaction, Unknown, ) ESBL-Ecoli- (urine) 04/08/17 Reported Meds & Prescriptions Reported Meds & Active Scripts Active Oxygen (O2) Device 2 Liter JOSE ANGEL.CANULA CONTINUOUS Oxygen Concentrator Portable Gaseous 2 L/min via Nasal Canula Continuous For 99 months Prednisone 20 Mg Tab 40 Mg PO DAILY 5 Days Take 40 mg (2 tablets) daily for 5 days Duoneb (Ipratropium-Albuterol Neb) 0.5-2.5 Mg/3 Ml Neb 1 Ampule NEB Q6HR NEB 30 Days Reported Alprazolam 0.5 Mg Tab 0.5 Mg PO BID PRN Percocet (Oxycodone-Acetaminophen) 10-325 mg Tab 1 Tab PO Q6H PRN Levothyroxine (Levothyroxine Sodium) 100 Mcg Tab 100 Mcg PO DAILY Albuterol Neb (Albuterol Sulfate) 2.5 Mg/0.5 Ml Neb 2.5 Mg NEB Q6HR NEB PRN Note: The Albuterol Sulfate Inhalation Solution is concentrated and must be diluted. Read complete instructions carefully before using. Proventil Hfa 6.7 GM Inh (Albuterol Sulfate) 90 Mcg/Act Aer 2 Puff INH Q4-6H PRN Review of Systems Except as stated in HPI: all other systems reviewed are Neg Physical Exam Narrative GENERAL: 56-year-old female well-nourished well-developed no acute distress pleasant SKIN: Warm and dry. HEAD: Atraumatic. Normocephalic. EYES: Pupils equal and round. No scleral icterus. No injection or drainage. ENT: No nasal bleeding or discharge. Mucous membranes pink and moist. NECK: Trachea midline. No JVD. CARDIOVASCULAR: Regular rate and rhythm. RESPIRATORY: No accessory muscle use. Clear to auscultation. Breath sounds equal bilaterally. GASTROINTESTINAL: Abdomen soft, non-tender, nondistended. Hepatic and splenic margins not palpable. MUSCULOSKELETAL: Ecchymosis about the left lower extremity in the region of the medial calf from just distal to the popliteal fossa to just proximal to the ER malleolus. Diffuse tenderness present. NEUROLOGICAL: Awake and alert. No obvious cranial nerve deficits. Motor grossly within normal limits. Five out of 5 muscle strength in the arms and legs. Normal speech. PSYCHIATRIC: Appropriate mood and affect; insight and judgment normal. Data Data Last Documented VS Vital Signs Date Time Temp Pulse Resp B/P (MAP) Pulse Ox O2 Delivery O2 Flow Rate FiO2 04/29/17 19:59 04/29/17 19:00 97.9 75 18 98 Nasal Cannula 2.00 Vital signs reviewed blood pressure 118/91 Orders Orders Urinalysis - C+S If Indicated (04/29/17 18:02) Us Leg Venous Doppler Bilat (04/29/17 ) Labs Laboratory Tests Test 04/29/17 18:09 Urine Collection Type VOIDED Urine Color YELLOW Urine Turbidity HAZY Urine pH 6.0 Urine Specific [place] GREATER THAN 1.035 Urine Protein TRACE mg/dL Urine Glucose (UA) NEG mg/dL Urine Ketones 15 mg/dL Urine Occult Blood NEG Urine Nitrite NEG Urine Bilirubin NEG Urine Leukocyte Esterase NEG Urine WBC 0-2 /hpf Urine Squamous Epithelial Cells 0-5 /hpf Microscopic Urinalysis Comment CULT NOT INDICATED Urine Collection Time 181 [facility] Medical Decision Making Medical Screen Exam Complete: Yes Emergency Medical Condition: Yes Medical Record Reviewed: Yes Differential Diagnosis DVT, UTI, superficial thrombophlebitis, ecchymosis/contusion Narrative Course Lower extremity Doppler study pending at the time of dictation. Oncoming provider to follow-up and disposition. Urinalysis results of at 1842: Results normal Yg Kuhn MD Apr 29, 2017 18:01
[2017-04-29 18:20] LABS: BLOOD, URINE NEG (NEG); GLUCOSE,URINE NEG (NEG); KETONE, URINE 15 mg/dL (NEG); NITRITE,URINE NEG (NEG)
[2017-04-29 18:23] VITALS: BP 149/77; PULSE 76; RESP 16; O2SAT 96
[2017-04-29 18:33] LABS: COMMENT (UR) CULT NOT INDICATED; CULTURE IF INDICATED CULT NOT INDICATED; METHOD OF COLLECTION VOIDED; SQUAMOUS EPITHELIAL CELL URINE 0-5 /hpf (0-5); URINE COLOR YELLOW (YELLW/STRAW); WBC, URINE 0-2 /hpf (0-5)
[2017-04-29 19:00] VITALS: BP 118/91; PULSE 75; RESP 18; TEMP 97.9; O2SAT 98
--- NOTE | 2017-04-29 19:25 | RADRPT ---
EXAM DATE/TIME: 04/29/2017 18:50 [facility] COMPARISON: No previous studies available for comparison. INDICATIONS : Bilateral leg pain. MEDICAL HISTORY : Chronic obstructive pulmonary disease. . Arthritis. Thyroid disease. Anxiety. Measles. MDRO . SURGICAL HISTORY : Bilateral knee surgery. Left shoulder surgery. ENCOUNTER: Subsequent ACUITY: 1 day PAIN SCORE: 2/10 LOCATION: Bilateral legs. TECHNIQUE: Venous ultrasound of the left and right leg was performed from the inguinal ligament to the proximal calf. Real-time, color Doppler and spectral tracing, compression and augmentation techniques were us ed. FINDINGS: RIGHT LEG: There is normal compressibility of the deep venous system from the inguinal region to the proximal ca lf. No echogenic clot is seen in the lumen of the common femoral, femoral, popliteal, and posterior tibial veins. There is a normal response of the venous system to proximal and distal augmentation an d respiration. There appears to be a fluid collection behind the knee suggestive of a Shelton's cyst me asuring 3.2 x 1.8 cm. LEFT LEG: There is normal compressibility of the deep venous system from the inguinal region to the proximal ca lf. No echogenic clot is seen in the lumen of the common femoral, femoral, popliteal, and posterior tibial veins. There is a normal response of the venous system to proximal and distal augmentation an d respiration. There appears to be a fluid collection behind the knee suggestive of a Shelton's cyst m easuring 4.7 x 4.0 cm. There is also some mildly prominent lymph nodes in the left inguinal area. CONCLUSION: 1. No evidence of DVT. 2. Bilateral Shelton's cyst. 3. Mildly prominent left inguinal lymph nodes. Flaco Varner MD on April 29, 2017 at 19:22 Board Certified Radiologist. This report was verified electronically.
--- NOTE | 2017-04-29 19:38 | PD ---
Physical Exam Time Seen by Provider: 19:[address] Kuhn with this patient with me to check the results of the ultrasound and discharge if normal. Data Data Last Documented VS Vital Signs Date Time Temp Pulse Resp B/P (MAP) Pulse Ox O2 Delivery O2 Flow Rate FiO2 04/29/17 18:23 76 16 149/77 (101) 96 04/29/17 17:50 97.9 Orders Orders Urinalysis - C+S If Indicated (04/29/17 18:02) Us Leg Venous Doppler Bilat (04/29/17 ) Labs Laboratory Tests Test 04/29/17 18:09 Urine Collection Type VOIDED Urine Color YELLOW Urine Turbidity HAZY Urine pH 6.0 Urine Specific [place] GREATER THAN 1.035 Urine Protein TRACE mg/dL Urine Glucose (UA) NEG mg/dL Urine Ketones 15 mg/dL Urine Occult Blood NEG Urine Nitrite NEG Urine Bilirubin NEG Urine Leukocyte Esterase NEG Urine WBC 0-2 /hpf Urine Squamous Epithelial Cells 0-5 /hpf Microscopic Urinalysis Comment CULT NOT INDICATED Urine Collection Time 1813 MDM Medical Record Reviewed: Yes Supervised Visit with SARAH: Yes Interpretation(s) The ultrasound shows no evidence of DVT. There are bilateral Shelton cyst present and mildly prominent left inguinal lymph nodes. Differential Diagnosis DVT, Shelton cyst, cellulitis-unlikely, lymph node swelling, congestive heart failure-unlikely Narrative Course The patient has a Shelton's cysts. The ultrasound shows no evidence for DVT. Plan: The patient will elevate the legs above her heart and follow-up with her primary care physician next week. Diagnosis Primary Impression: Shelton's cyst of knee Additional Impression: Inguinal lymphadenopathy Additional Instruction: As we discussed, elevate the legs above your heart and follow-up with her primary care physician next week. Med/Other Pt SpecificInfo: No Change to Meds Disposition: 01 DISCHARGE HOME Condition: Stable Keanu Washington MD Apr 29, 2017 19:38
== END 2017-04-29 20:17 | disposition home or self-care (01) ==
LOC: PHED 17:40
DX: M71.21 Synovial cyst of popliteal space [Baker], right knee (principal); M71.22 Synovial cyst of popliteal space [Baker], left knee; R59.0 Localized enlarged lymph nodes; F17.210 Nicotine dependence, cigarettes, uncomplicated; E07.9 Disorder of thyroid, unspecified; J44.9 Chronic obstructive pulmonary disease, unspecified; Z88.0 Allergy status to penicillin
CPT/HCPCS: 81001; 93970; 99285

== ENCOUNTER 2017-10-23 17:41 | Observation (INO) | payer MEDICAID, OTHER ==
[~2017-10-23 17:41] MED LIST changes: -AMBI5TAB PO; -LEVA750T9 PO
[2017-10-23 17:56] VITALS: BP 162/84; PULSE 84; RESP 24; TEMP 97.5; O2SAT 97
[2017-10-23] MEDS ORDERED: SODIUM CHLORIDE 0.9% FLUSH 10 ML FLUSH IVF PRN ×2 (18:15→19:00)
[2017-10-23] MEDS ORDERED: methylPREDNISolone SOD SUCC 125 MG/2 ML VIAL IV PUSH ONE (18:15)
[2017-10-23 18:16] VITALS: O2SAT 97
[2017-10-23] MEDS: RESP: ALBUTEROL 2.5 MG/IPRATROPIUM 0.5 MG NEB (SCH) INH ×2 (18:21→18:22)
[2017-10-23 18:43] LABS: AUTOMATED NEUTROPHIL # 7.8 TH/MM3 (1.8-7.7); BASOPHIL # 0.2 TH/MM3 (0-0.2); BASOPHIL % 1.6 % (0.0-2.0); EOSINOPHIL # 0.1 TH/MM3 (0-0.4); EOSINOPHIL % 1.1 % (0.0-4.0); HEMATOCRIT 43.6 % (35.0-46.0); LYMPH % 20.1 % (9.0-44.0); LYMPHOCYTE # 2.1 TH/MM3 (1.0-4.8); MEAN CELL VOLUME 86.9 FL (80.0-100.0); MEAN CORPUSCULAR HEMOGLOBIN 29.9 PG (27.0-34.0); MEAN CORPUSCULAR HGB CONC 34.4 % (32.0-36.0); MEAN PLATELET VOLUME 9.4 FL (7.0-11.0); MONO % 2.5 % (0.0-8.0); MONOCYTE # 0.3 TH/MM3 (0-0.9); NEUT % 74.7 % (16.0-70.0); PLATELET COUNT 246 TH/MM3 (150-450); RED BLOOD COUNT 5.02 MIL/MM3 (4.00-5.30); RED CELL DISTRIBUTION WIDTH 14.2 % (11.6-17.2); WHITE BLOOD COUNT 10.4 TH/MM3 (4.0-11.0)
--- NOTE | 2017-10-23 18:44 | PD ---
HPI Chief Complaint: Respiratory Distress Time Seen by Provider: 17:53 Travel History International Travel<30 days: No Contact w/Intl Traveler<30days: No Traveled to known affect area: No History of Present Illness HPI Patient's 57 years old and complains of dyspnea for about 1 week. She ran out of her nebulizer solutions due to inability to follow-up with primary care provider. Subjective fever reported. Frequent cough reported. Chest pain reported. Nausea vomiting reported. No diarrhea. No bloody emesis. Severity moderate. Onset gradual. Timing constant PFSH Past Medical History Arthritis: Yes (both knees) Asthma: Yes Anxiety: Yes Depression: No Cancer: No Cardiovascular Problems: No Chemotherapy: No Congestive Heart Failure: No COPD: Yes Coronary Artery Disease: No Diabetes: No Diminished Hearing: No Endocrine: Yes Genitourinary: Yes (BLADDER LEAKAGE) Immune Disorder: No Musculoskeletal: Yes Neurologic: No Psychiatric: No Reproductive: No Respiratory: Yes Radiation Therapy: No Thyroid Disease: Yes ?: Not Menopausal: Yes : 3 Para: 3 Past Surgical History Other Surgery: Yes Social History Alcohol Use: No Tobacco Use: Yes (1 PPD) Substance Use: No Allergies-Medications (Allergen,Severity, Reaction): Coded Allergies: penicillin G (Unverified Allergy, Severe, 10/23/17) *MDRO Multi-Drug Resistant Organism (Verified Adverse Reaction, Unknown, ) ESBL-Ecoli- (urine) 04/08/17 Reported Meds & Prescriptions Reported Meds & Active Scripts Active Oxygen (O2) Device 2 Liter JOSE ANGEL.CANULA CONTINUOUS Oxygen Concentrator Portable Gaseous 2 L/min via Nasal Canula Continuous For 99 months Prednisone 20 Mg Tab 40 Mg PO DAILY 5 Days Take 40 mg (2 tablets) daily for 5 days Duoneb (Ipratropium-Albuterol Neb) 0.5-2.5 Mg/3 Ml Neb 1 Ampule NEB Q6HR NEB 30 Days Reported Alprazolam 0.5 Mg Tab 0.5 Mg PO BID PRN Percocet (Oxycodone-Acetaminophen) 10-325 mg Tab 1 Tab PO Q6H PRN Levothyroxine (Levothyroxine Sodium) 100 Mcg Tab 100 Mcg PO DAILY Albuterol Neb (Albuterol Sulfate) 2.5 Mg/0.5 Ml Neb 2.5 Mg NEB Q6HR NEB PRN Note: The Albuterol Sulfate Inhalation Solution is concentrated and must be diluted. Read complete instructions carefully before using. Proventil Hfa 6.7 GM Inh (Albuterol Sulfate) 90 Mcg/Act Aer 2 Puff INH Q4-6H PRN Review of Systems Except as stated in HPI: all other systems reviewed are Neg Physical Exam Narrative GENERAL: 57-year-old female pleasant well-nourished well-developed Vital Signs Date Time Temp Pulse Resp B/P (MAP) Pulse Ox O2 Delivery O2 Flow Rate FiO2 10/23/17 18:16 97 Room Air 10/23/17 17:56 97.5 84 24 162/84 (110) 97 SKIN: Warm and dry. HEAD: Atraumatic. Normocephalic. EYES: Pupils equal and round. No scleral icterus. No injection or drainage. ENT: No nasal bleeding or discharge. Mucous membranes pink and moist. NECK: Trachea midline. No JVD. CARDIOVASCULAR: Regular rate and rhythm. RESPIRATORY: Minimal wheezing present bilaterally. Frequent cough. GASTROINTESTINAL: Abdomen soft, non-tender, nondistended. Hepatic and splenic margins not palpable. MUSCULOSKELETAL: Extremities without clubbing, cyanosis, or edema. No obvious deformities. NEUROLOGICAL: Awake and alert. No obvious cranial nerve deficits. Motor grossly within normal limits. Five out of 5 muscle strength in the arms and legs. Normal speech. PSYCHIATRIC: Appropriate mood and affect; insight and judgment normal. Data Data Last Documented VS Vital Signs Date Time Temp Pulse Resp B/P (MAP) Pulse Ox O2 Delivery O2 Flow Rate FiO2 10/23/17 18:47 98 Nasal Cannula 2.00 10/23/17 17:56 97.5 84 24 162/84 (110) Orders Orders Complete Blood Count With Diff (10/23/17 18:12) Comprehensive Metabolic Panel (10/23/17 18:12) B-Type Natriuretic Peptide (10/23/17 18:12) Act Partial Throm Time (Ptt) (10/23/17 18:12) Prothrombin Time / Inr (Pt) (10/23/17 18:12) Magnesium (Mg) (10/23/17 18:12) Ckmb (Isoenzyme) Profile (10/23/17 18:12) Troponin I (10/23/17 18:12) Influenzae A/B Antigen (10/23/17 18:12) Iv Access Insert/Monitor (10/23/17 18:12) Electrocardiogram (10/23/17 18:12) Ecg Monitoring (10/23/17 18:12) Oximetry (10/23/17 18:12) Oxygen Administration (10/23/17 18:12) Chest, Single Ap (10/23/17 18:12) Sodium Chloride 0.9% Flush (Ns Flush) (10/23/17 18:15) Methylprednisolone So Succ Inj (Solumedr (10/23/17 18:15) Albuterol-Ipratropium Neb (Duoneb Neb) (10/23/17 18:15) Blood Culture (10/23/17 18:58) Sodium Chloride 0.9% Flush (Ns Flush) (10/23/17 19:00) Ceftriaxone Inj (Rocephin Inj) (10/23/17 19:00) Azithromycin Inj (Zithromax Inj) (10/23/17 19:00) Ondansetron Inj (Zofran Inj) (10/23/17 19:15) Labs Laboratory Tests Test 10/23/17 18:20 White Blood Count 10.4 TH/MM3 Red Blood Count 5.02 MIL/MM3 Hemoglobin 15.0 GM/DL Hematocrit 43.6 % Mean Corpuscular Volume 86.9 FL Mean Corpuscular Hemoglobin 29.9 PG Mean Corpuscular Hemoglobin Concent 34.4 % Red Cell Distribution Width 14.2 % Platelet Count 246 TH/MM3 Mean Platelet Volume 9.4 FL Neutrophils (%) (Auto) 74.7 % Lymphocytes (%) (Auto) 20.1 % Monocytes (%) (Auto) 2.5 % Eosinophils (%) (Auto) 1.1 % Basophils (%) (Auto) 1.6 % Neutrophils # (Auto) 7.8 TH/MM3 Lymphocytes # (Auto) 2.1 TH/MM3 Monocytes # (Auto) 0.3 TH/MM3 Eosinophils # (Auto) 0.1 TH/MM3 Basophils # (Auto) 0.2 TH/MM3 CBC Comment DIFF FINAL Differential Comment Prothrombin Time 10.7 SEC Prothromb Time International Ratio 1.1 RATIO Activated Partial Thromboplast Time 26.1 SEC Blood Urea Nitrogen 18 MG/DL Creatinine 1.10 MG/DL Random Glucose 168 MG/DL Total Protein 7.7 GM/DL Albumin 4.2 GM/DL Calcium Level 9.0 MG/DL Magnesium Level 2.0 MG/DL Alkaline Phosphatase 114 U/L Aspartate Amino Transf (AST/SGOT) 9 U/L Alanine Aminotransferase (ALT/SGPT) 14 U/L Total Bilirubin 0.5 MG/DL Sodium Level 138 MEQ/L Potassium Level 3.4 MEQ/L Chloride Level 103 MEQ/L Carbon Dioxide Level 27.7 MEQ/L Anion Gap 7 MEQ/L Estimat Glomerular Filtration Rate 51 ML/MIN Total Creatine Kinase 61 U/L Troponin I LESS THAN 0.02 NG/ML MDM Medical Decision Making Medical Screen Exam Complete: Yes Emergency Medical Condition: Yes Medical Record Reviewed: Yes Differential Diagnosis COPD, pneumonia, coronary disease, effusion, renal failure, influenza Narrative Course CBC & BMP Diagram 10/23/17 18:20 Total Protein 7.7, Albumin 4.2, Calcium Level 9.0, Magnesium Level 2.0, Aspartate Amino Transf (AST/SGOT) 9 L, Alanine Aminotransferase (ALT/SGPT) 14, Total Bilirubin 0.5 EKG shows a sinus rhythm with a rate of 97 no ischemic injury pattern Last Impressions Chest X-Ray 10/23/171811 Signed Impressions: Service Date/Time: Monday, October 23, 2017 18:25 - CONCLUSION: 1. Minimal basilar atelectasis or scarring. No consolidation or significant effusion. Jeff Cerna MD IV Solu-Medrol started along with DuoNebs. Patient reports mild improvement however persistent dyspnea is reported. There is concern for pneumonia, Rocephin/azithromycin started, blood cultures drawn. d/w Dr Montes Diagnosis Primary Impression: COPD with acute exacerbation Additional Impression: Pneumonia Qualified Codes: J18.9 - Pneumonia, unspecified organism Admitting Information Admitting Physician Requests: Observation Yg Kuhn MD Oct 23, 2017 18:44
[2017-10-23 18:51] LABS: CHLORIDE 103 MEQ/L (98-107); SODIUM (NA) 138 MEQ/L (136-145)
--- NOTE | 2017-10-23 18:53 | RADRPT ---
EXAM DATE/TIME: 10/23/2017 18:25 [facility] COMPARISON: CHEST SINGLE AP, April 13, 2017, 23:56. INDICATIONS : Shortness of breath. MEDICAL HISTORY : Chronic obstructive pulmonary disease. Arthritis. Thyroid disease, Anxiety. Measles. MDRO SURGICAL HISTORY : Bilateral knee surgery. Left shoulder surgery ENCOUNTER: Initial ACUITY: 1 day PAIN SCORE: 6/10 LOCATION: Bilateral chest FINDINGS: A single view of the chest demonstrates the lungs to be symmetrically aerated without evidence of mas s, infiltrate or effusion. Minimal basilar atelectasis or scarring. The cardiomediastinal contours a re unremarkable. Osseous structures are intact. CONCLUSION: 1. Minimal basilar atelectasis or scarring. No consolidation or significant effusion. Jeff Cerna MD on October 23, 2017 at 18:51 Board Certified Radiologist. This report was verified electronically.
[2017-10-23 18:55] LABS: ALBUMIN 4.2 GM/DL (3.4-5.0); BICARBONATE 27.7 MEQ/L (21.0-32.0); BLOOD UREA NITROGEN 18 MG/DL (7-18); GLUCOSE,RANDOM 168 MG/DL (74-106)
[2017-10-23 18:56] LABS: INTERNATIONAL NORMALIZED RATIO 1.1 RATIO; PROTHROMBIN TIME - PATIENT 10.7 SEC (9.8-11.6)
[2017-10-23 18:58] LABS: ALT (GPT) 14 U/L (10-53); AST (GOT) 9 U/L (15-37); GLOMERULAR FILTRATION RATE 51 ML/MIN (>89)
[2017-10-23 19:00] LABS: TOTAL BILIRUBIN ADULT 0.5 MG/DL (0.2-1.0); TOTAL PROTEIN 7.7 GM/DL (6.4-8.2)
[2017-10-23] MEDS ORDERED: AZITHROMYCIN INJ 500 MG in SODIUM CHLOR 0.9% 250 ML INJ 250 ML IV ONE (19:00)
[2017-10-23] MEDS ORDERED: cefTRIAXone INJ 1,000 MG in SODIUM CHLORIDE 0.9% INJ 100 ML IV ONE (19:00)
[2017-10-23 19:01] LABS: ALKALINE PHOSPHATASE 114 U/L (45-117)
[2017-10-23 19:03] LABS: TROPONIN I LESS THAN 0.02 NG/ML (0.02-0.05)
[2017-10-23] MEDS ORDERED: ONDANSETRON HCL 4 MG/2 ML VIAL IV PUSH ONE (19:15)
[2017-10-23] MEDS ORDERED: ACETAMINOPHEN/HYDROcodone 325 MG/5 MG TAB PO PRN (19:30)
[2017-10-23] MEDS ORDERED: MAGNESIUM HYDROXIDE SUSP 30 ML CUP PO PRN (19:30)
[2017-10-23] MEDS ORDERED: ACETAMINOPHEN 325 MG TAB PO PRN (19:30)
[2017-10-23] MEDS ORDERED: LACTULOSE SYRUP 20 GM/30 ML CUP PO PRN (19:30)
[2017-10-23] MEDS ORDERED: SENNOSIDES 8.6 MG TAB PO PRN (19:30)
[2017-10-23] MEDS ORDERED: SODIUM CHLORIDE 0.9% FLUSH 10 ML FLUSH IV FLUSH PRN (19:30)
[2017-10-23] MEDS ORDERED: ACETAMINOPHEN/HYDROcodone 325 MG/10 MG TAB PO PRN (19:30)
[2017-10-23] MEDS ORDERED: RESP: ALBUTEROL 2.5 MG/IPRATROPIUM 0.5 MG NEB (PRN) NEB (19:30)
[2017-10-23] MEDS ORDERED: BISACODYL 10 MG SUPP RECTAL PRN (19:30)
[2017-10-23] MEDS ORDERED: AMBI5TAB PO (19:54)
[2017-10-23] MEDS ORDERED: OXYB5TAB8 PO (19:57)
[2017-10-23] MEDS ORDERED: DICL75TA PO (19:57)
[2017-10-23 19:59] VITALS: BP 137/80; PULSE 78; RESP 18; O2SAT 96
[2017-10-23] MEDS ORDERED: oxyCODONE/ACETAMINOPHEN 5 MG/325 MG TAB PO PRN (20:15)
[2017-10-23] MEDS: REMOVE OLD PATCH T-DERMAL SCH ×2 (20:15→21:00)
[2017-10-23] MEDS: ONDANSETRON HCL 4 MG/2 ML VIAL IVP PRN (20:43)
[2017-10-23] MEDS: RESP: ALBUTEROL 2.5 MG/IPRATROPIUM 0.5 MG NEB (SCH) NEB (20:44)
[2017-10-23 20:45] VITALS: O2SAT 96
[2017-10-23] MEDS: ZOLPIDEM TARTRATE 5 MG TAB PO PRN (21:40)
[2017-10-23] MEDS: guaiFENesin E.R. 600 MG TAB PO SCH (21:40)
[2017-10-23] MEDS: BUDESONIDE-FORMOTEROL 160/4.5 MCG INHALER INH SCH (21:40)
[2017-10-23] MEDS: SODIUM CHLORIDE 0.9% FLUSH 10 ML FLUSH IV FLUSH SCH (21:40)
[2017-10-23] MEDS: oxyCODONE/ACETAMINOPHEN 10 MG/325 MG TAB PO PRN (21:42)
[2017-10-23] MEDS: DOCUSATE SODIUM 50 MG/SENNA 8.6 MG TAB PO SCH (21:43)
[2017-10-23] MEDS: NICOTINE 21 MG/24 HR PATCH T-DERMAL SCH (21:51)
[2017-10-23 23:00] VITALS: PULSE 90
[2017-10-24] VITALS (8 sets, daily range): BP systolic 119–134; BP diastolic 63–86; PULSE 79–96; RESP 18–20; TEMP 97.3–98.9; O2SAT 92–96
[2017-10-24] MEDS: methylPREDNISolone SOD SUCC 40 MG/1 ML VIAL IV PUSH SCH ×4 (00:46→17:24)
[2017-10-24] MEDS: oxyCODONE/ACETAMINOPHEN 10 MG/325 MG TAB PO PRN ×5 (03:19→21:50)
[2017-10-24] MEDS: ONDANSETRON HCL 4 MG/2 ML VIAL IVP PRN ×3 (03:50→17:30)
[2017-10-24] MEDS: LEVOTHYROXINE SODIUM 100 MCG TAB PO SCH (06:08)
[2017-10-24 07:40] LABS: AUTOMATED NEUTROPHIL # 9.5 TH/MM3 (1.8-7.7); BASOPHIL % 0.3 % (0.0-2.0); EOSINOPHIL % 0.1 % (0.0-4.0); HEMATOCRIT 40.5 % (35.0-46.0); HEMOGLOBIN 13.4 GM/DL (11.6-15.3); LYMPHOCYTE # 0.7 TH/MM3 (1.0-4.8); MEAN CELL VOLUME 86.9 FL (80.0-100.0); MEAN CORPUSCULAR HEMOGLOBIN 28.8 PG (27.0-34.0); MEAN CORPUSCULAR HGB CONC 33.1 % (32.0-36.0); MEAN PLATELET VOLUME 9.9 FL (7.0-11.0); MONO % 0.5 % (0.0-8.0); MONOCYTE # 0.1 TH/MM3 (0-0.9); NEUT % 92.1 % (16.0-70.0); PLATELET COUNT 222 TH/MM3 (150-450); RED BLOOD COUNT 4.66 MIL/MM3 (4.00-5.30); RED CELL DISTRIBUTION WIDTH 14.4 % (11.6-17.2); WHITE BLOOD COUNT 10.3 TH/MM3 (4.0-11.0)
[2017-10-24 07:51] LABS: ALKALINE PHOSPHATASE 99 U/L (45-117); ALT (GPT) 14 U/L (10-53); AST (GOT) 9 U/L (15-37); BICARBONATE 25.6 MEQ/L (21.0-32.0); BLOOD UREA NITROGEN 22 MG/DL (7-18); CHLORIDE 105 MEQ/L (98-107); CREATININE 0.98 MG/DL (0.50-1.00); GLOMERULAR FILTRATION RATE 59 ML/MIN (>89); GLUCOSE,RANDOM 150 MG/DL (74-106); SODIUM (NA) 138 MEQ/L (136-145); TOTAL BILIRUBIN ADULT 0.5 MG/DL (0.2-1.0); TOTAL PROTEIN 7.3 GM/DL (6.4-8.2)
[2017-10-24] MEDS: RESP: ALBUTEROL 2.5 MG/IPRATROPIUM 0.5 MG NEB (SCH) NEB ×4 (07:53→19:40)
[2017-10-24] MEDS: SODIUM CHLORIDE 0.9% FLUSH 10 ML FLUSH IV FLUSH SCH ×2 (08:51→21:18)
[2017-10-24] MEDS: NICOTINE 21 MG/24 HR PATCH T-DERMAL SCH (08:54)
[2017-10-24] MEDS: ENOXAPARIN SODIUM 40 MG/0.4 ML SYRINGE SQ SCH (08:54)
[2017-10-24] MEDS: DOCUSATE SODIUM 50 MG/SENNA 8.6 MG TAB PO SCH ×2 (08:55→21:18)
[2017-10-24] MEDS: guaiFENesin E.R. 600 MG TAB PO SCH ×2 (08:59→21:18)
[2017-10-24] MEDS ORDERED: DICLOFENAC SODIUM 75 MG DELAYED RELEASE TAB PO SCH (09:00)
[2017-10-24] MEDS ORDERED: DICLOFENAC SODIUM 75 MG PO SCH (09:00)
[2017-10-24] MEDS: BUDESONIDE-FORMOTEROL 160/4.5 MCG INHALER INH SCH ×2 (09:41→21:48)
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
--- NOTE | 2017-10-24 14:37 | EKG ---
Date Performed: 10/23/2017 Time Performed: 18:52:33 PTAGE: 57 years EKG: Sinus rhythm POSSIBLE LEFT ATRIAL ENLARGEMENT NONSPECIFIC ST & T-WAVE ABNORMALITY BORDERLINE ECG Since PREVIOUS TRACING , no significant change noted PREVIOUS TRACIN04/13/2017 23.46 DOCTOR: Mario Kennedy Interpretating Date/Time 10/24/2017 14:37:02
[2017-10-24] MEDS: ALPRAZolam 0.5 MG TAB PO PRN ×2 (18:22→22:56)
[2017-10-24] MEDS ORDERED: LEVOFLOXACIN 750 MG PREMIX INJ 150 ML IV SCH (21:00)
[2017-10-24] MEDS: REMOVE OLD PATCH T-DERMAL SCH (21:24)
[2017-10-25] MEDS: ZOLPIDEM TARTRATE 5 MG TAB PO PRN (00:28)
[2017-10-25] MEDS: ONDANSETRON HCL 4 MG/2 ML VIAL IVP PRN (00:28)
[2017-10-25] MEDS: methylPREDNISolone SOD SUCC 40 MG/1 ML VIAL IV PUSH SCH ×3 (00:29→10:39)
[2017-10-25 00:41] VITALS: BP 106/60; PULSE 90; RESP 18; TEMP 98; O2SAT 93
[2017-10-25] MEDS: LEVOTHYROXINE SODIUM 100 MCG TAB PO SCH (05:40)
[2017-10-25] MEDS: oxyCODONE/ACETAMINOPHEN 10 MG/325 MG TAB PO PRN ×2 (06:31→10:53)
[2017-10-25] MEDS: RESP: ALBUTEROL 2.5 MG/IPRATROPIUM 0.5 MG NEB (SCH) NEB ×2 (07:42→11:07)
[2017-10-25 07:44] VITALS: O2SAT 95
[2017-10-25 08:00] VITALS: BP 140/70; PULSE 88; RESP 18; TEMP 97.5; O2SAT 92
--- NOTE | 2017-10-25 08:13 | HHI.PR ---
Subjective Remarks 57-year-old female seen in follow-up today for shortness of breath, chronic affective pulmonary disease with acute exacerbation. Patient is doing much better. She is sitting up in the bed without any oxygen. She is a good O2 saturations. Patient does not appear to be short of breath at this time. Patient discussed that there is anything that we can help her with by getting nicotine patches so she can quit smoking. She is also hoping that we could allow her to stay in the hospital another night. She does indicate that she needs refill on her medications. Objective Vitals Vital Signs Date Time Temp Pulse Resp B/P (MAP) Pulse Ox O2 Delivery O2 Flow Rate FiO2 10/25/17 07:44 95 21 10/25/17 00:41 98.0 90 18 106/60 (75) 93 10/24/17 21:03 98.9 90 20 134/71 (92) 95 10/24/17 19:41 95 21 10/24/17 16:00 97.5 96 18 129/63 (85) 93 10/24/17 12:00 97.4 89 20 119/66 (83) 92 I/O 10/24/17 10/24/17 10/24/17 10/25/17 10/25/17 10/25/17 07:00 15:00 23:00 07:00 15:00 23:00 Intake Total 650 ml 150 ml Output Total 350 ml Balance -350 ml 650 ml 150 ml Intake Oral 650 ml IV Total 150 ml Output Emesis 350 ml # Voids 3 4 # Bowel Movements 0 0 Result Diagram: 10/24/17 0647 10/24/17 0647 Objective Remarks GENERAL: Well-developed, well-nourished, in no acute distress. alert and orientated HEENT: Head is normocephalic without any lesions or masses noted. Facial features are symmetric. Eyes: Extraocular muscles are intact. Conjunctivae were clear. NECK: Supple without any masses. Trachea midline no deviation. No JVD, CARDIAC: Regular rhythm, regular rate. S1/S2 are heard. No murmurs gallops or rubs. LUNGS: Forced and expiratory wheeze. No Rhonchi or rales. No use of accessory muscles on inspiration or expiration. ABDOMEN: Soft, nontender. Nondistended. Bowel sounds heard in all 4 quadrants. No organomegaly or masses. Negative rebound, negative guarding EXTREMITIES: No edema, pulses are equal bilaterally. No cyanosis or clubbing NEUROLOGY: Mood and affect appear appropriate. Cranial nerves II through XII grossly intact. Moving all extremities, speech is clear Urinary Catheter: No Vascular Central Line Catheter: No A/P Assessment and Plan Chronic obstructive pulmonary disease with acute exacerbation in a patient with chronic hypoxic respiratory failure, improved Patient had been noncompliant with her oxygen and has been continuing to smoke on a daily basis Patient was on Solu-Medrol 40 mg every 6 hours Duo nebs every 4 hours and every 2 hours as needed Patient was started on Levaquin and has been converted to by mouth Levaquin Patient has not required oxygen at this time to maintain O2 saturations COPD education was performed. Patient was given information about outpatient resources to help with smoking cessation Chronic back pain Home medications were continued Anxiety Home medications were continued DVT prevention Subcutaneous Lovenox Discharge Planning Discharge home in stable condition Activity: Ad opal. Diet: Regular diet Medications per medication reconciliation Follow-up with primary medical doctor in one week Jimmy Washington Oct 25, 2017 08:13
[2017-10-25] MEDS: DOCUSATE SODIUM 50 MG/SENNA 8.6 MG TAB PO SCH (09:00)
[2017-10-25] MEDS ORDERED: OXYBUTYNIN CHLORIDE 5 MG TAB PO SCH (09:00)
[2017-10-25] MEDS: guaiFENesin E.R. 600 MG TAB PO SCH (09:14)
[2017-10-25] MEDS: NICOTINE 21 MG/24 HR PATCH T-DERMAL SCH (09:15)
[2017-10-25] MEDS: ENOXAPARIN SODIUM 40 MG/0.4 ML SYRINGE SQ SCH (09:15)
[2017-10-25] MEDS: SODIUM CHLORIDE 0.9% FLUSH 10 ML FLUSH IV FLUSH SCH (09:16)
[2017-10-25] MEDS: BUDESONIDE-FORMOTEROL 160/4.5 MCG INHALER INH SCH (10:38)
--- NOTE | 2017-10-25 11:46 | HHI.DCPOC ---
Discharge Care Plan Diagnosis: (1) COPD with acute exacerbation Goals to Promote Your Health * To prevent worsening of your condition and complications * To maintain your health at the optimal level Directions to Meet Your Goals Take your medications as prescribed Follow your dietary instruction Follow activity as directed Keep your appointments as scheduled Take your immunizations and boosters as scheduled If your symptoms worsen call your PCP, if no PCP go to Urgent Care Center or Emergency Room Smoking is Dangerous to Your Health. Avoid second hand smoke Call the 24-hour hour crisis hotline for domestic abuse at Jimmy Washington Oct 25, 2017 11:46
[2017-10-25] MEDS ORDERED: IPRASOL NEB (11:49)
[2017-10-25] MEDS ORDERED: ALBU6.7H INH (11:49)
[2017-10-25] MEDS ORDERED: ALBU.5I NEB (11:49)
[2017-10-25] MEDS ORDERED: NICO21DI25 T-DERMAL (11:49)
[2017-10-25] MEDS ORDERED: MEDR4PAK PO (11:49)
[2017-10-25] MEDS ORDERED: guaiFENesin ER PO (11:49)
[2017-10-25 11:53] VITALS: RESP 20
[2017-10-25] MEDS ORDERED: DIATRIZOATE MEGLUM/DIATRIZOATE SOD 9 ML CUP PO ONE (12:00)
[2017-10-25] MEDS ORDERED: LEVOFLOXACIN 750 MG TAB PO SCH (21:00)
== END 2017-10-25 13:35 | disposition home or self-care (01) ==
LOC: PHED 17:41 → PHEDA 19:11 → PH3A 20:33
PROVIDERS: ADMIT Hospitalist; ATTEND Hospitalist
DX: J44.1 Chronic obstructive pulmonary disease with (acute) exacerbation (principal); J44.0 Chronic obstructive pulmonary disease with (acute) lower respiratory infection; J18.9 Pneumonia, unspecified organism; J96.11 Chronic respiratory failure with hypoxia; E07.9 Disorder of thyroid, unspecified; F41.9 Anxiety disorder, unspecified; M54.9 Dorsalgia, unspecified; G89.29 Other chronic pain; M17.0 Bilateral primary osteoarthritis of knee; F17.200 Nicotine dependence, unspecified, uncomplicated; Z79.899 Other long term (current) drug therapy; Z99.81 Dependence on supplemental oxygen; Z91.19 Patient's noncompliance with other medical treatment and regimen
CPT/HCPCS: 71045; 80053; 82550; 83735; 83880; 84484; 85025; 85610; 85730; 87040; 87804; 93005; 94640; 94664; 96365; 96366; 96372; 96375; 96376; 99285; G0378; J0456; J0696; J1650; J1956; J2405; J2920; J2930; J7050